=== PATIENT | male | born 1955 | race Caucasian/White ===

== ENCOUNTER 2017-05-28 09:00 | Inpatient (IN) | payer OTHER, MEDICAID ==
--- NOTE | 2017-05-28 09:44 | EDPHY ---
H & P Time Seen by Provider: 05/28/17 09:01 HPI/ROS: Chief complaint. Abdominal pain HPI. A 61-year-old male here by EMS with complaint of abdominal pain that started this morning. He complains of right upper quadrant abdominal pain beginning at 5:00 a.m.. He describes as a fullness and pressure with possible radiation to his back. It is worse with movement. He has been belching. Also seems to be worse with eating. Nausea without vomiting. History of cirrhosis and this is similar to that. He has known gallstones. No chest discomfort or shortness of breath. No fever. ROS Constitutional. no fever/chills, no weakness Eyes. no problems with vision ENT. no sore throat, no nasal drainage Cardiovascular. no chest pain Respiratory. no shortness of breath, no cough Abdominal. Right upper quadrant abdominal pain with nausea . no problems urinating MS. no calf pain/swelling, no neck/back pain, no joint pain Skin. no rash Lymph. no swollen glands Neuro. no headache, no dizziness, no difficulty walking or with speech Past Medical/Surgical History: Hypothyroid, obesity, portal hypertension atrial fibrillation Social History: Single, nonsmoker, no alcohol Smoking Status: Former smoker Physical Exam: General Appearance: Alert well-developed male mild distress. Vital signs are stable Eyes: Pupils equal and round no pallor or injection. ENT, Mouth: Mucous membranes are moist. Respiratory: There are no retractions, lungs are clear to auscultation. Cardiovascular: Regular rate and rhythm. Gastrointestinal: Right upper quadrant tenderness. No masses. Morbidly obese Neurological: Awake and alert, sensory and motor exams grossly normal. Skin: Warm and dry, no rashes. Musculoskeletal: Neck is supple nontender. Extremities symmetrical, full range of motion. Psychiatric: Patient is oriented X 3, there is no agitation. Constitutional: Initial Vital Signs Temperature (C) 36.7 C 05/28/17 09:02 Heart Rate 60 05/28/17 09:02 Respiratory Rate 16 05/28/17 09:02 Blood Pressure 134/64 H 05/28/17 09:02 O2 Sat (%) 90 L 05/28/17 09:02 O2 Delivery Mode Room Air Allergies/Adverse Reactions: strawberry Allergy (Verified 05/28/17 09:11) Medical Decision Making - Diagnostics Imaging Results: Imaging Impressions Abdomen Ultrasound 05/28/17 09:50 Impression: 1. Gallbladder sludge. 2. Limited exam. Liver, portal venous system, and biliary system are not optimally visualized. Findings discussed with Emergency Department physician, Bandar Zendejas on 2016 at 11:[address] 05/28/17 12:24 Impression: 1. Cholelithiasis with small gallstone seen near the neck of the gallbladder. Gallbladder is moderately distended suggesting it may be obstructive or gallbladder hydrops. Mild surrounding inflammatory change which could represent cholecystitis. 2. Cirrhotic liver with probable chronic portal vein thrombosis and recanalization with extensive varices of the spleen and left kidney suggesting a splenorenal shunt. 3. Nonspecific 3.5 cm hypodense lesion at the anterior dome of the liver. Recommend further evaluation with multiphase contrast evaluation. 4. Mild constipation. Limited evaluation for appendicitis as a normal appendix is not visualized. Minimal free fluid in the right lower quadrant could be secondary to an underlying cirrhosis. Mild diverticulosis without evidence for diverticulitis. 5. Other chronic findings as above. Results called and discussed with Bandar Zendejas on 05/28/2017, 1400 hours. Gallbladder ultrasound shows some sludge but no evidence of cholecystitis CT abdomen with IV contrast shows gallstones with small gallstone near the neck of the bladder. Gallbladder is moderately distended. The gallbladder appears to be mildly inflamed as well. Appendix not visualized Procedures: IV normal saline ED Course/Re-evaluation: Re-evaluation 12:15 p.m.--patient stable though continuing to complain of abdominal pain. CT is ordered Re-evaluation again at 2:15 p.m.. Patient continues to complain of right upper quadrant abdominal pain The consulted and discussed case with Dr. Millan, surgeon who sees the patient in the emergency department. He recommends admission to hospitalist. I have also consulted and discussed the case with Dr. Godwin, hospitalist, who agrees to the admission Differential Diagnosis: I have considered cholecystitis, common bile duct stone, cirrhosis, other causes of abdominal pain - Data Points Laboratory Results: Laboratory Results 05/28/17 09:01 05/28/17 09:01 05/28/17 05/28/17 05/28/17 09:01 09:01 09:01 WBC 7.71 10^3/uL 10^3/uL (3.80-9.50) RBC 4.23 10^6/uL L 10^6/uL (4.40-6.38) Hgb 13.9 g/dL g/dL (13.7-17.5) Hct 39.6 % L % (40.0-51.0) MCV 93.6 fL fL (81.5-99.8) MCH 32.9 pg pg (27.9-34.1) MCHC 35.1 g/dL g/dL (32.4-36.7) RDW 15.4 % H % (11.5-15.2) Plt Count 119 10^3/uL L 10^3/uL (150-400) MPV 10.4 fL fL (8.7-11.7) Neut % (Auto) 71.4 % % (39.3-74.2) Lymph % (Auto) 18.8 % % (15.0-45.0) [place] % (Auto) 8.0 % % (4.5-13.0) Eos % (Auto) 1.0 % % (0.6-7.6) Baso % (Auto) 0.5 % % (0.3-1.7) Nucleat RBC Rel Count 0.0 % % (0.0-0.2) Absolute Neuts (auto) 5.50 10^3/uL 10^3/uL (1.70-6.50) Absolute Lymphs (auto) 1.45 10^3/uL 10^3/uL (1.00-3.00) Absolute Monos (auto) 0.62 10^3/uL 10^3/uL (0.30-0.80) Absolute Eos (auto) 0.08 10^3/uL 10^3/uL (0.03-0.40) Absolute Basos (auto) 0.04 10^3/uL 10^3/uL (0.02-0.10) Absolute Nucleated RBC 0.00 10^3/uL 10^3/uL (0-0.01) Immature Gran % 0.3 % % (0.0-1.1) Immature Gran # 0.02 10^3/uL 10^3/uL (0.00-0.10) PT Pending INR Pending Sodium 134 mEq/L mEq/L (134-144) Potassium 3.9 mEq/L mEq/L (3.5-5.2) Chloride 102 mEq/L mEq/L (97-110) Carbon Dioxide 26 mEq/l mEq/l (22-31) Anion Gap 6 mEq/L L mEq/L (8-16) BUN 22 mg/dL mg/dL (7-23) Creatinine 0.6 mg/dL L mg/dL (0.7-1.3) Estimated GFR > 60 Glucose 105 mg/dL H mg/dL (70-100) Calcium 8.5 mg/dL mg/dL (8.5-10.4) Total Bilirubin 2.7 mg/dL H mg/dL (0.1-1.4) Conjugated Bilirubin 1.0 mg/dL H mg/dL (0.0-0.5) Unconjugated Bilirubin 1.7 mg/dL H mg/dL (0.0-1.1) AST 51 IU/L IU/L (17-59) ALT 38 IU/L IU/L (21-72) Alkaline Phosphatase 88 IU/L IU/L (38-126) Total Protein 5.9 g/dL L g/dL (6.3-8.2) Albumin 2.3 g/dL L g/dL (3.5-5.0) Lipase 76 IU/L IU/L (23-300) Medications Given: Discontinued Medications Fentanyl (Sublimaze) 100 mcg IVP EDNOW ONE Stop: 05/28/17 10:48 Last Admin: 05/28/17 10:49 Dose: 100 mcg Sodium Chloride (Ns) 1,000 mls @ 0 mls/hr IV EDNOW ONE; Wide Open PRN Reason: Protocol Stop: 05/28/17 09:51 Last Admin: 05/28/17 09:57 Dose: 1,000 mls Ondansetron HCl (Zofran) 4 mg IVP EDNOW ONE Stop: 05/28/17 09:51 Last Admin: 05/28/17 09:57 Dose: 4 mg Departure - Departure Disposition: [facility] Acute Clinical Impression: Abdominal pain Qualifiers: Abdominal location: right upper quadrant Qualified Code(s): R10.11 - Right upper quadrant pain Condition: Fair Referrals: Patient,NotPresent [Unknown] - As per Instructions
[2017-05-28] MEDS ORDERED: NS 1,000 ML IV ONE (09:50)
[2017-05-28] MEDS ORDERED: ONDANSETRON 4 MG/2 ML VIAL IVP ONE (09:50)
[2017-05-28 09:56] LABS: % IMMATURE GRANULYOCYTES 0.3 % (0.0-1.1); ABSOLUTE IMMATURE GRANULOCYTES 0.02 10^3/uL (0.00-0.10); ADD DIFF? NO; ADD MORPH? NO; ADD SCAN? NO; ATYPICAL LYMPHOCYTE FLAG 10 (0-99); FRAGMENT RBC FLAG 0 (0-99); HEMATOCRIT 39.6 % (40.0-51.0); HEMOGLOBIN 13.9 g/dL (13.7-17.5); LEFT SHIFT FLG 0 (0-99); LIPEMIA HEMOLYSIS FLAG 90 (0-99); MEAN CELL HEMOGLOBIN 32.9 pg (27.9-34.1); MEAN CELL HEMOGLOBIN CONCENTR. 35.1 g/dL (32.4-36.7); MEAN CELL VOLUME 93.6 fL (81.5-99.8); MEAN PLATELET VOLUME 10.4 fL (8.7-11.7); PLATELET CLUMPS FLAG 10 (0-99); PLATELET COUNT 119 10^3/uL (150-400); RED BLOOD CELL COUNT 4.23 10^6/uL (4.40-6.38); RED CELL DISTRIBUTION WIDTH 15.4 % (11.5-15.2)
[2017-05-28 10:15] LABS: ALANINE AMINOTRANSFERASE 38 IU/L (21-72); ALBUMIN 2.3 g/dL (3.5-5.0); ALKALINE PHOSPHATASE 88 IU/L (38-126); ANION GAP 6 mEq/L (8-16); ASPARTATE AMINOTRANSFERASE 51 IU/L (17-59); BILIRUBIN,TOTAL 2.7 mg/dL (0.1-1.4); BILIRUBIN-UNCONJUGATED 1.7 mg/dL (0.0-1.1); CALCIUM 8.5 mg/dL (8.5-10.4); CARBON DIOXIDE 26 mEq/l (22-31); CHLORIDE 102 mEq/L (97-110); CREATININE 0.6 mg/dL (0.7-1.3); GLOMERULAR FILTRATION RATE > 60; GLUCOSE 105 mg/dL (70-100); POTASSIUM 3.9 mEq/L (3.5-5.2); SODIUM 134 mEq/L (134-144); TOTAL PROTEIN 5.9 g/dL (6.3-8.2)
[2017-05-28] MEDS ORDERED: fentaNYL 100 MCG/2 ML INJ IVP ONE (10:47)
[2017-05-28] MEDS ORDERED: fentaNYL 100 MCG/2 ML INJ ONE (10:47)
--- NOTE | 2017-05-28 11:12 | CPEKG ---
Heart Rate: 53 RR Interval: 1132 P-R Interval: 204 QRSD Interval: 116 QT Interval: 464 QTC Interval: 436 P Jackson: -2 QRS Jackson: -30 T Wave Jackson: 29 EKG Severity - ABNORMAL ECG - EKG Impression: SINUS RHYTHM EKG Impression: NONSPECIFIC INTRAVENTRICULAR CONDUCTION DELAY Electronically Signed By: Bandar Zendejas 28-May-2017 16:10:46
[2017-05-28] MEDS ORDERED: IOPAMIDOL (ISOVUE-300) 100 ML BTL ONE (12:47)
[2017-05-28 15:32] LABS: INR 1.32 (0.83-1.16); PROTIME(PATIENT) 16.4 SEC (12.0-15.0)
[2017-05-28] MEDS ORDERED: oxyCODONE IR 5 MG TAB PO PRN (15:33)
[2017-05-28] MEDS ORDERED: METOCLOPRAMIDE 10 MG TAB PO PRN (15:33)
[2017-05-28] MEDS ORDERED: METOCLOPRAMIDE 10 MG/2 ML VIAL IVP PRN (15:33)
[2017-05-28] MEDS ORDERED: BISACODYL 10 MG SUPP PR PRN (15:55)
[2017-05-28] MEDS ORDERED: POLYETHYLENE GLYCOL 3350 17 GM PKT PO PRN (15:55)
[2017-05-28] MEDS ORDERED: MAGNESIUM HYDROXIDE 30 ML UDCUP PO PRN (15:55)
--- NOTE | 2017-05-28 15:59 | PDGENHP ---
History and Physical - Chief Complaint Acute abdominal pain - History of Present Illness primary care provider: Dr. Dunn HPI: 61-year-old male presenting with acute abdominal pain located in the right upper quadrant, characterized as fullness and pressure, with onset of symptoms at 5:00 a.m. this morning, duration persistent thereafter. Patient reports that the abdominal symptoms were exacerbated with oral intake of water and were associated with some belching and nausea. Reports that his last bowel movement was on the evening prior to this presentation, and the bowel movement did seem to alleviate sensation of abdominal fullness he experienced after eating dinner. he reports that he began experiencing some pain located in his lower back at that time. He reports that he does intermittently feel symptoms of abdominal discomfort after meals, but he has mostly characterizes this as early satiety and a bloating sensation. He has otherwise not had any fevers or chills. He does endorse oliguria on the day of presentation. History Information - Allergies/Home Medication List Allergies/Adverse Reactions: strawberry Allergy (Verified 05/28/17 09:11) Home Medications: Gabapentin [Neurontin 400 MG (*)] 400 mg PO BID 05/28/17 [Last Taken Unknown] Hydrochlorothiazide [HCTZ (*)] 12.5 mg PO DAILY 05/28/17 [Last Taken 05/28/17] Lactulose 30 gm PO BID 05/28/17 [Last Taken 05/27/17] Levothyroxine [Synthroid 75 mcg (*)] 75 mcg PO HS 05/28/17 [Last Taken 05/27/17] Nadolol [Nadolol 20 mg (*)] 20 mg PO DAILY 05/28/17 [Last Taken Unknown] Omeprazole 40 mg PO DAILY 05/28/17 [Last Taken 6 Weeks Ago] Rifaximin [Xifaxan] 550 mg PO BID 05/28/17 [Last Taken Unknown] oxyCODONE IR [Oxycodone Ir (*)] 10 mg PO BID 05/28/17 [Last Taken 05/27/17] I have personally reviewed and updated: family history, medical history, social history, surgical history - Past Medical History Additional medical history: Cirrhosis with portal hypertension. Lymphedema with venous stasis dermatitis. Hypertension. GERD. Neuropathy. Cholelithiasis. Hypothyroidism - Surgical History Additional surgical history: cataract surgery - Family History Additional family history: no family history of liver disease or venous thromboembolism, his father was an alcoholic - Social History Smoking Status: Former smoker Alcohol Use: Rarely Drug Use: Other ( patient use to use dietary amphetamines to lose weight, last used in the early 1980s) Additional social history: patient has a private residence in [place], he is currently at [facility] for treatment of his lymphedema Review of Systems ROS: 10pt was reviewed & negative except for what was stated in HPI & below Constitutional: Reports: other ( morbid obesity) Cardiac: Reports: edema Gastrointestinal: Reports: abdominal pain, nausea Physical Exam Temp Pulse Resp BP Pulse Ox 36.6 C 57 L 16 146/62 H 95 05/28/17 15:07 05/28/17 15:07 05/28/17 15:07 05/28/17 15:07 05/28/17 15:07 Constitutional: no apparent distress, not in pain, chronically ill appearing, obese, No uncomfortable Eyes: PERRL, anicteric sclera, EOMI Ears, Nose, Mouth, Throat: hearing normal, dry mucous membranes Cardiovascular: bradycardia, edema ( 1+ bilateral lower extremities), No systolic murmur, No irregularly irregular Respiratory: no respiratory distress, no rales or rhonchi, clear to auscultation Gastrointestinal: tenderness ( moderate tenderness to mild palpation in the right hemidiaphragm, worse right upper quadrant), rebound, other ( hypoactive bowel sounds), No guarding, No distension Skin: other ( stasis dermatitis bilateral lower extremities, some mild excoriations in the right medial lower extremity without any surrounding erythema) Neurologic: AAOx3, No sensation intact bilaterally ( absent sensation in the bilateral toes, present sensation in the bilateral mid lower extremities), No weakness ( motor strength 5/5 bilateral lower extremities), No asterixes Psychiatric: not anxious, not encephalopathic, flat affect, No agitated Lab Data & Imaging Review 05/28/17 09:01 05/28/17 09:01 WBC 7.71 10^3/uL (3.80-9.50) 05/28/17 09:01 RBC 4.23 10^6/uL (4.40-6.38) L 05/28/17 09:01 Hgb 13.9 g/dL (13.7-17.5) 05/28/17 09:01 Hct 39.6 % (40.0-51.0) L 05/28/17 09:01 MCV 93.6 fL (81.5-99.8) 05/28/17 09:01 MCH 32.9 pg (27.9-34.1) 05/28/17 09:01 MCHC 35.1 g/dL (32.4-36.7) 05/28/17 09:01 RDW 15.4 % (11.5-15.2) H 05/28/17 09:01 Plt Count 119 10^3/uL (150-400) L 05/28/17 09:01 MPV 10.4 fL (8.7-11.7) 05/28/17 09:01 Neut % (Auto) 71.4 % (39.3-74.2) 05/28/17 09:01 Lymph % (Auto) 18.8 % (15.0-45.0) 05/28/17 09:01 [place] % (Auto) 8.0 % (4.5-13.0) 05/28/17 09:01 Eos % (Auto) 1.0 % (0.6-7.6) 05/28/17 09:01 Baso % (Auto) 0.5 % (0.3-1.7) 05/28/17 09:01 Nucleat RBC Rel Count 0.0 % (0.0-0.2) 05/28/17 09:01 Absolute Neuts (auto) 5.50 10^3/uL (1.70-6.50) 05/28/17 09:01 Absolute Lymphs (auto) 1.45 10^3/uL (1.00-3.00) 05/28/17 09:01 Absolute Monos (auto) 0.62 10^3/uL (0.30-0.80) 05/28/17 09:01 Absolute Eos (auto) 0.08 10^3/uL (0.03-0.40) 05/28/17 09:01 Absolute Basos (auto) 0.04 10^3/uL (0.02-0.10) 05/28/17 09:01 Absolute Nucleated RBC 0.00 10^3/uL (0-0.01) 05/28/17 09:01 Immature Gran % 0.3 % (0.0-1.1) 05/28/17 09:01 Immature Gran # 0.02 10^3/uL (0.00-0.10) 05/28/17 09:01 PT 16.4 SEC (12.0-15.0) H 05/28/17 09:01 INR 1.32 (0.83-1.16) H 05/28/17 09:01 Sodium 134 mEq/L (134-144) 05/28/17 09:01 Potassium 3.9 mEq/L (3.5-5.2) 05/28/17 09:01 Chloride 102 mEq/L (97-110) 05/28/17 09:01 Carbon Dioxide 26 mEq/l (22-31) 05/28/17 09:01 Anion Gap 6 mEq/L (8-16) L 05/28/17 09:01 BUN 22 mg/dL (7-23) 05/28/17 09:01 Creatinine 0.6 mg/dL (0.7-1.3) L 05/28/17 09:01 Estimated GFR > 60 05/28/17 09:01 Glucose 105 mg/dL (70-100) H 05/28/17 09:01 Calcium 8.5 mg/dL (8.5-10.4) 05/28/17 09:01 Total Bilirubin 2.7 mg/dL (0.1-1.4) H 05/28/17 09:01 Conjugated Bilirubin 1.0 mg/dL (0.0-0.5) H 05/28/17 09:01 Unconjugated Bilirubin 1.7 mg/dL (0.0-1.1) H 05/28/17 09:01 AST 51 IU/L (17-59) 05/28/17 09:01 ALT 38 IU/L (21-72) 05/28/17 09:01 Alkaline Phosphatase 88 IU/L (38-126) 05/28/17 09:01 Total Protein 5.9 g/dL (6.3-8.2) L 05/28/17 09:01 Albumin 2.3 g/dL (3.5-5.0) L 05/28/17 09:01 Lipase 76 IU/L (23-300) 05/28/17 09:01 Visualized and Interpreted EKG results: Yes EKG Interpretation: Positive for: other ( normal sinus mechanism with intraventricular conduction delay, Q-wave in lead 3, T-wave inversion in lead V2 ) Assessment & Plan Assessment: 61-year-old male presents with acute abdominal pain and suspected acute cholecystitis Plan: 1. Suspected acute cholecystitis. New problem this provider, further workup indicated. Evidenced by right upper quadrant pain and tenderness, with mixed hyperbilirubinemia, postprandial symptoms. He has radiographic evidence of stones near the gallbladder neck with pericholecystic inflammation and gallbladder distention - discussed with Dr. Bandar Zendejas, he reports to me that he has consulted with Dr. Millan, he has recommended initial conservative management and further workup given patient's high surgical risk - get HIDA scan - treat supportively with IV and oral pain medications, IV fluids, bowel rest - I suspect the patient will require gallbladder surgery, and his current RCRI score is 0, conferring 0.5% perioperative cardiovascular risk of morbidity and/ or mortality, resulting in low cardiovascular risk for high risk surgery, given patient's underlying comorbid condition of cirrhosis with portal hypertension and morbid obesity 2. Constipation. Present on CT scan, continue home dosage of lactulose, continue bowel regiment 3. Cirrhosis. Chronic, include portal hypertension, he is currently on beta- artem and scheduled xifaxan/lactulose, continue - no evidence of hepatic encephalopathy - order outside records from primary care provider office, attempt to define the exact etiology of his cirrhosis 4. Morbid obesity. Chronic, BMI 55, significantly increase patient's risk of worsening morbidity and/or mortality 5. Chronic pain with continuous opiate dependency. Most likely secondary to obesity and immobility, adjusted to p.r.n. oxycodone with bowel regimen 6. Hypertension. Hold diuretic given poor oral intake, continue monitor 7. Peripheral neuropathy. Continue gabapentin 8. Lymphedema. Chronic, patient's legs are currently wrapped, he does have some small areas of excoriations on his medial left thigh, wound care consult appreciated Diet. NPO with IV fluids Prophylaxis. Moderate risk patient, pharm held given possible surgery, SCDs to be placed Code. Do not resuscitate per patient, his sister is MDPOA Disposition. Anticipated discharge is 05/29/2017, pending further workup as outlined above. If patient requires surgery for acute cholecystitis, should be upgraded to inpatient admission status given his long list of high risk comorbid conditions outlined above.
[2017-05-28] MEDS: NS W/ 20 KCl/L 1,000 ML IV SCH (18:19)
--- NOTE | 2017-05-28 18:19 | WOCRNPDOC ---
WOCRN Advanced Assessment Note - Skin Integrity Problem, Advanced Assess Left Heel Dressing Type: Hydrofera Blue, Non-Bordered Foam Dressing Description: Clean/Dry, Intact Exudate Amount: None Integumentary Issue Intervention: Dressing Removed Danika Wound Tissue: Calloused Danika Wound Swelling: None Wound Bed Color: Red Wound Bed Constitution: Granulation Tissue Wound Edges: Attached Site Measurement - Head-to-Toe Length X Width X Depth (cm): 4x3.2x0.3 Skin Integrity Problem Comment: Dressing was adhered to patient's wound and needed to be soaked before removal. Wound presents as a neuropathic ulcer. Will plan to place collagen and hydrofera blue ready. Patient OK to shower with dressings off all wounds except this one. Cover this wound with tegaderm for the shower and then change the dressing after the shower and reapply compression /BRISSA wraps. Right Posterior Lower Leg Dressing Type: Hydrofera Blue Dressing Description: Clean/Dry, Intact Exudate Amount: Scant Exudate Characteristic(s): Serosanguinous Integumentary Issue Intervention: Dressing Removed Danika Wound Tissue: Xerotic, Hypertrophic, Lichenification Wound Bed Constitution: Granulation Tissue Wound Edges: Epithelizing Site Measurement - Head-to-Toe Length X Width X Depth (cm): 2.9x1.7x0.2 Skin Integrity Problem Comment: There is a partial thickness ulcer present that was previously much larger, as evidenced by scar tissue and pigment changes. Bilateral lower legs are extensively hypertrophic and lichenified. This can be addressed with urea cream while the patient is inpatient. The wound will be treated with silvasorb and Alleyvn life. Will continue wrapping leg for compression. Wound care will round again on or near 06/03. Coccyx Dressing Type: Open to Air Integumentary Issue Intervention: Barrier Cream Applied Site Measurement - Head-to-Toe Length X Width X Depth (cm): 0.5x0.4x0.1 Skin Integrity Problem Comment: Small, linear, partial thickness opening on coccyx. This is likely intertrigenous dermatitis/friction injury along gluteal cleft. There are also mixed with areas of xerotic and hypertrophic skin. Manage with dimethicone cream. Multiple RN's and photographic plate maker were in room for care as patient requires 4-5 people to turn him. Bariatric bed has been ordered by . If patient stays for more than a day or two staff may benefit from a bariatric TAPS system available in the wound cart.
[2017-05-28] MEDS: oxyCODONE IR 5 MG TAB PO PRN ×2 (18:20→22:41)
[2017-05-28] MEDS: RIFAXIMIN 550 MG TAB PO SCH (20:52)
[2017-05-28] MEDS: GABAPENTIN 400 MG CAP PO SCH (20:52)
[2017-05-28] MEDS: LEVOTHYROXINE 75 MCG TAB PO SCH (20:52)
[2017-05-28] MEDS: LACTULOSE 20 GM/30 ML UDCUP PO SCH (20:53)
[2017-05-28] MEDS ORDERED: LACTULOSE 30 GM PO SCH (21:00)
[2017-05-28] MEDS: SENNOSIDES/DOCUSATE SODIUM TAB PO SCH (22:22)
[2017-05-29] MEDS ORDERED: PHYTONADIONE 2.5 MG/2.5 ML ORAL UDL PO ONE (00:39)
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
[2017-05-29 04:46] LABS: % IMMATURE GRANULYOCYTES 0.6 % (0.0-1.1); ABSOLUTE IMMATURE GRANULOCYTES 0.09 10^3/uL (0.00-0.10); ADD DIFF? NO; ADD MORPH? NO; ADD SCAN? NO; ATYPICAL LYMPHOCYTE FLAG 10 (0-99); FRAGMENT RBC FLAG 0 (0-99); HEMATOCRIT 44.4 % (40.0-51.0); HEMOGLOBIN 15.1 g/dL (13.7-17.5); LEFT SHIFT FLG 0 (0-99); LIPEMIA HEMOLYSIS FLAG 90 (0-99); MEAN CELL HEMOGLOBIN 32.9 pg (27.9-34.1); MEAN CELL VOLUME 96.7 fL (81.5-99.8); PLATELET CLUMPS FLAG 10 (0-99); PLATELET COUNT 109 10^3/uL (150-400); RED BLOOD CELL COUNT 4.59 10^6/uL (4.40-6.38); RED CELL DISTRIBUTION WIDTH 15.9 % (11.5-15.2)
[2017-05-29 05:04] LABS: ALANINE AMINOTRANSFERASE 52 IU/L (21-72); ALBUMIN 2.4 g/dL (3.5-5.0); ALKALINE PHOSPHATASE 111 IU/L (38-126); ANION GAP 7 mEq/L (8-16); ASPARTATE AMINOTRANSFERASE 75 IU/L (17-59); BILIRUBIN,TOTAL 3.8 mg/dL (0.1-1.4); CALCIUM 8.6 mg/dL (8.5-10.4); CARBON DIOXIDE 27 mEq/l (22-31); CHLORIDE 102 mEq/L (97-110); CREATININE 0.8 mg/dL (0.7-1.3); GLOMERULAR FILTRATION RATE > 60; GLUCOSE 107 mg/dL (70-100); POTASSIUM 4.3 mEq/L (3.5-5.2); SODIUM 136 mEq/L (134-144); TOTAL PROTEIN 6.1 g/dL (6.3-8.2)
[2017-05-29 05:10] LABS: BILIRUBIN-CONJUGATED 1.6 mg/dL (0.0-0.5); BILIRUBIN-UNCONJUGATED 2.2 mg/dL (0.0-1.1)
[2017-05-29] MEDS: GABAPENTIN 400 MG CAP PO SCH ×2 (07:50→21:25)
[2017-05-29] MEDS: RIFAXIMIN 550 MG TAB PO SCH ×2 (07:50→21:25)
[2017-05-29] MEDS: SENNOSIDES/DOCUSATE SODIUM TAB PO SCH ×2 (07:50→21:25)
[2017-05-29] MEDS: NADOLOL 20 MG TAB PO SCH (07:50)
[2017-05-29] MEDS: PANTOPRAZOLE SODIUM 40 MG TAB PO SCH (07:50)
[2017-05-29] MEDS: LACTULOSE 20 GM/30 ML UDCUP PO SCH ×2 (07:51→21:23)
--- NOTE | 2017-05-29 08:04 | SOAPPROG ---
GISSELL Progress Note Assessment/Plan: Assessment: 1.cholelithiasis/cholecystitis, cannot exclude choledocholithiasis 2. cirrhosis unclear etiology 3. portal vein thrombosis/secondary varices 4. morbid obesity 5. A-fib hx 6. NO COR status confirmed Plan: HIDA scan to exclude CBD obstruction IV Abx cholecystectomy tomorrow if not improved 05/29/17 08:01 Subjective: persistant RUQ pain Objective: Vital Signs Temp Pulse Resp BP Pulse Ox 36.6 C 70 20 149/85 H 90 L 05/29/17 07:56 05/29/17 07:56 05/29/17 07:56 05/29/17 07:56 05/29/17 07:56 Laboratory Results 05/29/17 04:30 05/29/17 04:30 05/28/17 05/29/17 05/30/17 05:59 05:59 05:59 Intake Total 0 Output Total 375 275 Balance -375 -275 PT 16.4 SEC (12.0-15.0) H 05/28/17 09:01 INR 1.32 (0.83-1.16) H 05/28/17 09:01 - Time Spent With Patient Time Spent With Patient: 20 min - Pending Discharge Pending Discharge Within 24 Hours: No Pending Discharge Within 48 Hours: No Physical Exam - Physical Exam General Appearance: mild distress Abdomen: soft, McBurney's point tender, other (tender RUQ) Extremities: other (severe lymphedema) Neuro/Psych: normal mood/affect, oriented x 3 ICD10 Worksheet Patient Problems: Problems Problem Status Onset Abdominal pain Acute Atrial fibrillation Acute Cholecystitis, acute with cholelithiasis Acute Chronic pain due to trauma Acute Cirrhosis Acute Morbid obesity Acute Portal vein thrombosis Acute - ICD10 Problem Qualifiers (1) Cirrhosis Qualifiers: Hepatic cirrhosis type: unspecified hepatic cirrhosis Ascites presence: A (2) Portal vein thrombosis (3) Cholecystitis, acute with cholelithiasis Qualifiers: Cholelithiasis location: gallbladder Biliary obstruction: with biliary obstruction Qualified Code(s): K80.01 - Calculus of gallbladder with acute cholecystitis with obstruction (4) Morbid obesity (5) Atrial fibrillation Qualifiers: Atrial fibrillation type: paroxysmal Qualified Code(s): I48.0 - Paroxysmal atrial fibrillation (6) Chronic pain due to trauma
[2017-05-29] MEDS ORDERED: NON-FORMULARY NEW DRUG (Omeprazole [Omeprazole] 40 MG) PO SCH (09:00)
--- NOTE | 2017-05-29 09:26 | HOSPPROG ---
Hospitalist Progress Note Assessment/Plan: # acute cholecystitis, mild LFT elevation (may be chronic but no old labs here) - start levaquin/flagyl - HIDA today to r/o CBD stone - likely cholecystectomy tomorrow; high risk given cirrhosis and obesity # leukocytosis d/t acute cholecystitis # morbid obesity # cirrhosis - unclear etiology; suspect etOH + GARCIA - rifaximin, nadolol, lactulose - mild thrombocytopenia, coagulopathy (got vit k) - chronic portal vein thrombosis # htn - hold hctz # peripheral neuropathy - gabapentin # liver lesion - bx during surgery if possible, or outpatient f/u - needs screening for HCC Subjective: ongoing RUQ pain, severe Objective: Vital Signs Temp Pulse Resp BP Pulse Ox 36.6 C 70 20 149/85 H 90 L 05/29/17 07:56 05/29/17 07:56 05/29/17 07:56 05/29/17 07:56 05/29/17 07:56 Laboratory Results 05/29/17 04:30 05/29/17 04:30 05/28/17 05/29/17 05/30/17 05:59 05:59 05:59 Intake Total 0 Output Total 375 275 Balance -375 -275 PT 16.4 SEC (12.0-15.0) H 05/28/17 09:01 INR 1.32 (0.83-1.16) H 05/28/17 09:01 - Physical Exam Constitutional: obese Cardiovascular: regular rate and rhythym, no murmur, rub, or gallop Respiratory: no respiratory distress, no rales or rhonchi, clear to auscultation Gastrointestinal: normoactive bowel sounds, other (soft; RUQ pain, +Suarez's sign) ICD10 Worksheet Patient Problems: Problems Problem Status Onset Abdominal pain Acute Cirrhosis Acute Portal vein thrombosis Acute Cholecystitis, acute with cholelithiasis Acute Morbid obesity Acute Atrial fibrillation Acute Chronic pain due to trauma Acute
[2017-05-29] MEDS: oxyCODONE IR 5 MG TAB PO PRN ×3 (11:47→19:30)
[2017-05-29] MEDS: NS W/ 20 KCl/L 1,000 ML IV SCH (13:30)
--- NOTE | 2017-05-29 17:47 | SOAPPROG ---
Downtime Inpatient MD Late Entry SOAP Note: HIDA shows no CBD obstruction/GB was non-vis I plan on proceeding with lap vs. open jean carlos tomorrow afternoon 05/30.
[2017-05-29] MEDS: LEVOTHYROXINE 75 MCG TAB PO SCH (21:25)
[2017-05-30] MEDS: NS W/ 20 KCl/L 1,000 ML IV SCH (01:53)
[2017-05-30] MEDS: oxyCODONE IR 5 MG TAB PO PRN (01:53)
[2017-05-30 05:05] LABS: % IMMATURE GRANULYOCYTES 0.9 % (0.0-1.1); ABSOLUTE IMMATURE GRANULOCYTES 0.12 10^3/uL (0.00-0.10); ADD DIFF? NO; ADD MORPH? NO; ADD SCAN? NO; ATYPICAL LYMPHOCYTE FLAG 0 (0-99); FRAGMENT RBC FLAG 0 (0-99); HEMATOCRIT 38.1 % (40.0-51.0); LEFT SHIFT FLG 0 (0-99); LIPEMIA HEMOLYSIS FLAG 90 (0-99); MEAN CELL HEMOGLOBIN 33.1 pg (27.9-34.1); MEAN CELL HEMOGLOBIN CONCENTR. 34.1 g/dL (32.4-36.7); MEAN CELL VOLUME 96.9 fL (81.5-99.8); MEAN PLATELET VOLUME 10.3 fL (8.7-11.7); PLATELET CLUMPS FLAG 0 (0-99); PLATELET COUNT 95 10^3/uL (150-400); RED BLOOD CELL COUNT 3.93 10^6/uL (4.40-6.38); RED CELL DISTRIBUTION WIDTH 16.1 % (11.5-15.2)
[2017-05-30 05:18] LABS: ALANINE AMINOTRANSFERASE 46 IU/L (21-72); ALBUMIN 1.9 g/dL (3.5-5.0); ALKALINE PHOSPHATASE 109 IU/L (38-126); ANION GAP 5 mEq/L (8-16); ASPARTATE AMINOTRANSFERASE 65 IU/L (17-59); BILIRUBIN,TOTAL 3.6 mg/dL (0.1-1.4); CALCIUM 8.2 mg/dL (8.5-10.4); CARBON DIOXIDE 27 mEq/l (22-31); CHLORIDE 104 mEq/L (97-110); CREATININE 0.8 mg/dL (0.7-1.3); GLOMERULAR FILTRATION RATE > 60; GLUCOSE 94 mg/dL (70-100); POTASSIUM 4.4 mEq/L (3.5-5.2); SODIUM 136 mEq/L (134-144); TOTAL PROTEIN 5.4 g/dL (6.3-8.2)
[2017-05-30 05:24] LABS: BILIRUBIN-CONJUGATED 1.8 mg/dL (0.0-0.5); BILIRUBIN-UNCONJUGATED 1.8 mg/dL (0.0-1.1)
[2017-05-30] MEDS: SENNOSIDES/DOCUSATE SODIUM TAB PO SCH ×2 (09:20→20:50)
[2017-05-30] MEDS: RIFAXIMIN 550 MG TAB PO SCH ×2 (09:20→20:48)
[2017-05-30] MEDS: LACTULOSE 20 GM/30 ML UDCUP PO SCH ×2 (09:21→20:51)
[2017-05-30] MEDS: NADOLOL 20 MG TAB PO SCH (09:21)
[2017-05-30] MEDS: PANTOPRAZOLE SODIUM 40 MG TAB PO SCH (09:21)
[2017-05-30] MEDS: GABAPENTIN 400 MG CAP PO SCH ×2 (09:21→20:48)
--- NOTE | 2017-05-30 10:32 | HOSPPROG ---
Hospitalist Progress Note Assessment/Plan: # acute cholecystitis, mild LFT elevation (may be chronic but no old labs here) - imaging shows possible obstructive gall stone - to OR today for open jean carlos - cont levaquin/flagyl - high risk given cirrhosis and obesity # leukocytosis d/t acute cholecystitis # morbid obesity # lymphedema with lichenification of LE's and chronic venous stasis ulcers - LE' s dressed, reviewed wound care notes - cont wound care # sacral pressure injury - wound care following # cirrhosis - ETOH hx + GARCIA - rifaximin, nadolol, lactulose - mild thrombocytopenia - chronic portal vein thrombosis # coagulopathy - due to above, s/p Vit K # liver lesion 3.5 cm - biopsy during surgery if possible vs outpt multiphase contrast CT for further evaluation - outpt HCC screening # htn - BP stable this am, holding hctz # peripheral neuropathy - gabapentin # DVT PPLX - SCD's. Lovenox deferred today as going to OR. # DNR # Dispo - cont inpt Subjective: Pt c/o RUQ pain, worse with coughing. Followed by GI in [place] for cirrhosis, but lives at [facility]. No fevers/chills. No N/V. Thirsty , wants water. Objective: Vital Signs Temp Pulse Resp BP Pulse Ox 36.8 C 75 16 125/53 H 90 L 05/30/17 08:55 05/30/17 08:55 05/30/17 08:55 05/30/17 08:55 05/30/17 08:55 Laboratory Results 05/30/17 04:44 05/30/17 04:44 05/29/17 05/30/17 05/31/17 05:59 05:59 05:59 Intake Total 1058 Output Total 675 145 Balance 383 -145 PT 16.4 SEC (12.0-15.0) H 05/28/17 09:01 INR 1.32 (0.83-1.16) H 05/28/17 09:01 - Physical Exam Constitutional: chronically ill appearing, obese, unkempt Eyes: PERRL Ears, Nose, Mouth, Throat: moist mucous membranes Cardiovascular: regular rate and rhythym Respiratory: no respiratory distress, clear to auscultation Gastrointestinal: normoactive bowel sounds, other (obese, soft, +RUQ TTP, no r/r /g) Skin: other (b/l LE edema with chronic lichenification of toes, extremities wrapped) Musculoskeletal: generalized weakness Neurologic: AAOx3 Psychiatric: interacting appropriately ICD10 Worksheet Patient Problems: Problems Problem Status Onset Abdominal pain Acute Atrial fibrillation Acute Cholecystitis, acute with cholelithiasis Acute Chronic pain due to trauma Acute Cirrhosis Acute Morbid obesity Acute Portal vein thrombosis Acute
[2017-05-30] MEDS ORDERED: LR 1,000 ML IV ONE (14:54)
--- NOTE | 2017-05-30 15:25 | PDANEPAE ---
ANE History of Present Illness acute cholecystitis ANE Past Medical History - Cardiovascular History Hx Hypertension: Yes - Pulmonary History Hx Oxygen in Use at Home: No Hx Sleep Apnea: Yes Sleep Apnea Screening Result - Last Documented: Positive - Endocrine History Hx Diabetes: No Hypothyroid: Yes Obesity: severe - Liver History Hx Hepatic Disorders: Yes - Neurological & Psychiatric Hx Hx Neurological and Psychiatric Disorders: Yes ANE Review of Systems - Exercise capacity METS (RN): 1 METS ANE Patient History - Allergies Allergies/Adverse Reactions: strawberry Allergy (Verified 05/28/17 09:11) - Home Medications Home Medications: Gabapentin [Neurontin 400 MG (*)] 400 mg PO BID 05/28/17 [Last Taken Unknown] Hydrochlorothiazide [HCTZ (*)] 12.5 mg PO DAILY 05/28/17 [Last Taken 05/28/17] Lactulose 30 gm PO BID 05/28/17 [Last Taken 05/27/17] Levothyroxine [Synthroid 75 mcg (*)] 75 mcg PO HS 05/28/17 [Last Taken 05/27/17] Nadolol [Nadolol 20 mg (*)] 20 mg PO DAILY 05/28/17 [Last Taken Unknown] Omeprazole 40 mg PO DAILY 05/28/17 [Last Taken 6 Weeks Ago] Rifaximin [Xifaxan] 550 mg PO BID 05/28/17 [Last Taken Unknown] oxyCODONE IR [Oxycodone Ir (*)] 10 mg PO BID 05/28/17 [Last Taken 05/27/17] - NPO status NPO Since - Liquids (Date): 05/29/17 NPO Since - Liquids (Time): 00:00 NPO Since - Solids (Date): 05/29/17 NPO Since - Solids (Time): 00:00 - Smoking Hx Smoking Status: Former smoker - Alcohol Use Alcohol Use: Rarely ANE Labs/Vital Signs - Labs Result Diagrams: 05/30/17 04:44 05/30/17 04:44 - Vital Signs Blood Pressure: 134/53 Heart Rate: 72 Respiratory Rate: 16 O2 Sat (%): 94 Height: 182.88 cm Weight: 197.313 kg ANE Physical Exam - Airway Neck exam: FROM Mallampati Score: Class 2 Mouth exam: normal dental/mouth exam - Pulmonary Pulmonary: no respiratory distress - Cardiovascular Cardiovascular: regular rate and rhythym - ASA Status ASA Status: IV ANE Anesthesia Plan Anesthesia Plan: general endotracheal anesthesia
[2017-05-30] MEDS ORDERED: BUPIVACAINE 0.5% 30 ML SDV ONE (15:33)
[2017-05-30] MEDS ORDERED: IOTHALAMATE MEG (CONRAY) 50 ML VIAL IV ONE (15:34)
[2017-05-30] MEDS ORDERED: SUCCINYLCHOLINE CHLORIDE*ANESTHESIA ONLY*200 MG/10 ML SYR IVP ONE (15:38)
[2017-05-30] MEDS ORDERED: ROCURONIUM 50 MG/5 ML VIAL ONE (15:38)
[2017-05-30] MEDS ORDERED: fentaNYL 100 MCG/2 ML INJ ONE ×4 (15:38→18:43)
[2017-05-30] MEDS ORDERED: HYDROmorphONE/DILAUDID 2 MG/ML INJ ONE (15:39)
[2017-05-30] MEDS ORDERED: PROPOFOL 200 MG/20 ML VIAL ONE ×2 (15:39→16:26)
[2017-05-30] MEDS ORDERED: PHM DO NOT USE-BUPIVACAINE 0.25% THORACOTOMY MISC SCH (16:30)
[2017-05-30] MEDS ORDERED: ALBUMIN 5% 250 ML BOTTLE IV ONE (16:39)
[2017-05-30] MEDS ORDERED: BUPIVACAINE 0.25% 270 ML in PUMP SET 1 EA NB ONE (16:45)
[2017-05-30] MEDS ORDERED: ONDANSETRON 4 MG/2 ML VIAL IVP PRN (18:08)
[2017-05-30] MEDS ORDERED: NALOXONE HCL 0.4 MG/ML INJ IVP PRN (18:08)
[2017-05-30] MEDS: fentaNYL 100 MCG/2 ML INJ IVP PRN ×2 (18:43→18:50)
--- NOTE | 2017-05-30 18:43 | POSTOPPROG ---
Post Op Note Date of Operation: 05/30/17 Surgeon: Noe Millan (, FACS) Net Developer: Hermann Burnett MD Anesthesiologist: Jeremy Sierra MD Anesthesia: GET(General Endotracheal) Pre-op Diagnosis: Cholecystitis Post-op Diagnosis: gangrenous cholecystitis Procedure: open cholecystectomy Findings: gangrenous gallbladder Inf/Abcess present in the surg proc area at time of surgery?: Yes Depth: Organ Space EBL: 100-500 (400ml?) Complications: none Drains: Pernell Orenlas Specimen(s): gallbladder/cultures
--- NOTE | 2017-05-30 18:52 | POSTANESTH ---
Post Anesthetic Evaluation Cardiovascular Status: Normal, Stable Respiratory Status: Normal, Stable Level of Consciousness/Mental Status: Can Participate in Eval Pain Control: Adequate, Prn Tx Ordered Nausea/Vomiting Control: Adequate, Prn Tx Ordered Complications Possibly Related to Anesthesia: None Noted
[2017-05-30] MEDS ORDERED: HYDROmorphONE/DILAUDID 1 MG/ML SYR ONE (18:53)
[2017-05-30] MEDS: HYDROmorphONE/DILAUDID 1 MG/ML SYR IVP PRN ×3 (18:55→19:15)
[2017-05-30] MEDS: LEVOTHYROXINE 75 MCG TAB PO SCH (20:48)
--- NOTE | 2017-05-30 22:07 | GOP ---
[f rep st] OPERATIVE REPORT DATE OF OPERATION: 05/29/2017 SURGEON: Noe Millan MD, FACS COMPUTER APPLICATIONS DEVELOPER: Hermann Burnett MD. ANESTHESIA: Pinky Sierra MD. PREOPERATIVE DIAGNOSIS: Acute cholecystitis. POSTOPERATIVE DIAGNOSIS: Acute gangrenous cholecystitis. PROCEDURE PERFORMED: Open cholecystectomy. FINDINGS: Morbid obesity, ascites, significant micronodular cirrhosis and grade 2 varices. Patient's gallbladder was gangrenous in appearance, contained multiple pigmented stones and was obstructed. Intraoperative cholangiogram was not performed as a preoperative HIDA scan showed no evidence of common bile duct obstruction. ESTIMATED BLOOD LOSS: 500 cc. DESCRIPTION OF PROCEDURE: After informed consent was obtained, the patient was brought to the operating room and placed under general anesthesia. As the patient weighed 440 pounds, it was necessary to use a special bariatric operating table with lateral extensions. The patient's pressure points were carefully padded. A Lang catheter was placed. The abdomen was prepped and draped in usual fashion. The patient had been receiving Levaquin and Flagyl, and no additional antibiotics were administered perioperatively. Before proceeding, a time-out and identification of the patient was performed. 0.25% Marcaine was used to infiltrate the abdominal wall lateral to the planned incision site. A subcostal incision was made and carried through skin and subcutaneous tissues, anterior rectus sheath, external oblique fascia, internal transverse abdominis. Posterior rectus sheath was incised. Peritoneal cavity was entered and approximately 500 cc of ascites was aspirated immediately. Numerous varices were encounter even in subcutaneous tissues; as these were encountered, they were clamped, divided and ligated with 2-0 Vicryl ligatures. The gallbladder was considerably cephalad with a contracted micronodular cirrhotic liver. There was significant inflammation and yet there was no perforation or abscess noted. The incision was extended medially to the midline and cephalad to the xiphoid process to achieve adequate exposure in this anatomically challenging patient. The Omni-Tract retractor was used to facilitate exposure. The gallbladder was decompressed through the dome and non- foul-smelling thick bile was aspirated. Multiple stones were retrieved and submitted for permanent section along with the final specimen. The gallbladder was taken down from the top. Incising the posterior aspect adjacent to the liver proved difficult as there was no identifiable tissue plane. The gallbladder was entered and the posterior wall of the gallbladder left attached to the liver as the remainder of the gallbladder was dissected down toward the infundibulum. This was then dissected along the triangle of Calot. The cystic artery was in countered was hemoclipped and divided. All the tissues were both acutely and chronically inflamed in appearance and represented a significant risk to common bile duct injury. Blunt dissection was used primarily to break up some of the inflamed and fibrotic fat around the infundibulum until the cystic duct, which was encased in a rind of thickened and inflamed tissue, was the only structure remaining. A single firing of the Endo-MILLICENT 45 stapler with a 1.5 mm staple height was performed to seal the duct as it could not safely be dissected from the surrounding tissues. The specimen was removed from the field and inspected. The course of the cystic duct internally led to the proximal staple. Operative field appeared hemostatic. The area was irrigated with normal saline. A 10 mm flat Pernell-Ornelas drain was brought through a separate stab wound and placed into the subhepatic space, secured to the skin with 3-0 silk suture. The midline fascial incision cephalad to the xiphoid was closed with continuous running #1 PDS suture. The lateral extension of the incision was closed in 2 layers with 2-0 Vicryl suture for the posterior sheath and #1 PDS suture for the anterior sheath. Bilateral On-Q catheters were placed. Subcutaneous tissues were loosely approximated with 3-0 Vicryl suture. Skin was closed with igor. The catheter was secured with Dermabond and Tegaderms. Sterile dressings were applied. Patient was extubated and returned to the recovery room in satisfactory condition. Needle, sponge, and instrument count were correct. COMPLICATIONS: None. /[id number]/MODL MTDD
[2017-05-31 05:47] LABS: % IMMATURE GRANULYOCYTES 0.9 % (0.0-1.1); ABSOLUTE IMMATURE GRANULOCYTES 0.13 10^3/uL (0.00-0.10); ADD DIFF? NO; ADD MORPH? NO; ADD SCAN? NO; ATYPICAL LYMPHOCYTE FLAG 20 (0-99); FRAGMENT RBC FLAG 0 (0-99); LEFT SHIFT FLG 0 (0-99); LIPEMIA HEMOLYSIS FLAG 90 (0-99); MEAN CELL HEMOGLOBIN 33.4 pg (27.9-34.1); MEAN CELL HEMOGLOBIN CONCENTR. 34.2 g/dL (32.4-36.7); MEAN CELL VOLUME 97.7 fL (81.5-99.8); PLATELET CLUMPS FLAG 30 (0-99); PLATELET COUNT 119 10^3/uL (150-400); RED BLOOD CELL COUNT 3.89 10^6/uL (4.40-6.38); RED CELL DISTRIBUTION WIDTH 16.4 % (11.5-15.2)
[2017-05-31 05:54] LABS: ALANINE AMINOTRANSFERASE 50 IU/L (21-72); ALKALINE PHOSPHATASE 95 IU/L (38-126); ANION GAP 7 mEq/L (8-16); ASPARTATE AMINOTRANSFERASE 83 IU/L (17-59); BILIRUBIN,TOTAL 3.5 mg/dL (0.1-1.4); CALCIUM 7.9 mg/dL (8.5-10.4); CARBON DIOXIDE 21 mEq/l (22-31); CHLORIDE 107 mEq/L (97-110); CREATININE 0.7 mg/dL (0.7-1.3); GLOMERULAR FILTRATION RATE > 60; GLUCOSE 91 mg/dL (70-100); POTASSIUM 5.1 mEq/L (3.5-5.2); SODIUM 135 mEq/L (134-144); SPECIMEN HEMOLYSIS 113; TOTAL PROTEIN 5.2 g/dL (6.3-8.2)
[2017-05-31 06:08] LABS: BILIRUBIN-UNCONJUGATED 1.5 mg/dL (0.0-1.1)
[2017-05-31] MEDS: oxyCODONE IR 5 MG TAB PO PRN ×3 (09:13→19:56)
[2017-05-31] MEDS: SPIRONOLACTONE 50 MG TAB PO SCH (09:13)
[2017-05-31] MEDS: NADOLOL 20 MG TAB PO SCH (09:13)
[2017-05-31] MEDS: LACTULOSE 20 GM/30 ML UDCUP PO SCH ×2 (09:13→22:13)
[2017-05-31] MEDS: SENNOSIDES/DOCUSATE SODIUM TAB PO SCH ×2 (09:13→22:13)
[2017-05-31] MEDS: GABAPENTIN 400 MG CAP PO SCH ×2 (09:14→22:18)
[2017-05-31] MEDS: PANTOPRAZOLE SODIUM 40 MG TAB PO SCH (09:14)
[2017-05-31] MEDS: RIFAXIMIN 550 MG TAB PO SCH ×2 (09:14→22:12)
--- NOTE | 2017-05-31 10:21 | HOSPPROG ---
Hospitalist Progress Note Assessment/Plan: 61-year-old male who underwent a cholecystectomy for a gangrenous gallbladder. Patient has done well postoperatively. Patient is new to me today - acute cholecystitis, mild LFT elevation (may be chronic but no old labs here) -postop day 1. Patient is doing well. -leukocytosis d/t acute cholecystitis, and postoperative state. -morbid obesity - lymphedema with lichenification of LE's and chronic venous stasis ulcers - LE' s dressed, reviewed wound care notes - cont wound care -sacral pressure injury - wound care following -cirrhosis - ETOH hx + GARCIA - rifaximin, nadolol, lactulose - mild thrombocytopenia - chronic portal vein thrombosis -atrial fibrillation by history:. Patient reports this diagnosis was made approximately 2-2 and half years ago in [place]. He reports at that time he was put on a beta-artem and hydrochlorothiazide. No anticoagulation was ordered. During this hospitalization he has been in normal sinus rhythm. -S PCM: Secondary to poor nutritional status and a chronic basis and is postoperative state. We will follow his nutritional intake. -coagulopathy - due to above, s/p Vit K -liver lesion 3.5 cm - no biopsy was performed during surgery due to the extensive nature is a cirrhosis and the possibility of bleeding. There was a 500 cc blood loss during the surgery due to cirrhosis and varices. -htn - BP stable this am, holding hctz -peripheral neuropathy - gabapentin - DVT PPLX - SCD's. Will start Lovenox today and watch his platelet count Overall the gentleman is doing well postoperatively. Watch his white count fever cardiac rhythm disturbance and his platelet count. Subjective: Reports he is feeling improved. Says he also cannot take a deep breath without having hiccups or coughing. No complaints of abdominal pain or fever. Objective: Vital Signs Temp Pulse Resp BP Pulse Ox 36.6 C 71 16 147/65 H 98 05/31/17 07:22 05/31/17 09:13 05/31/17 07:22 05/31/17 09:13 05/31/17 07:22 Microbiology 05/30/17 17:19 Gram Stain - Final Gallbladder - Eswab Laboratory Results 05/31/17 05:21 05/31/17 04:43 05/30/17 05/31/17 06/01/17 05:59 05:59 05:59 Intake Total 1058 1640 Output Total 675 1420 105 Balance 383 220 -105 PT 16.4 SEC (12.0-15.0) H 05/28/17 09:01 INR 1.32 (0.83-1.16) H 05/28/17 09:01 Laboratory Tests 05/28/17 05/29/17 05/30/17 09:01 04:30 04:44 WBC 7.71 14.67 H 14.03 H 05/31/17 05:21 WBC 14.57 H Laboratory Tests 05/28/17 05/28/17 05/29/17 09:01 09:01 04:30 WBC 7.71 14.67 H INR 1.32 H Albumin 05/30/17 05/31/17 05/31/17 04:44 04:43 05:21 WBC 14.03 H 14.57 H INR Albumin 2.0 L - Time Spent With Patient Time Spent with Patient: greater than 35 minutes Time Spent with Patient: Greater than 35 minutes spent on this patients care, greater than 50% of time spent counseling, educating, and coordinating care regarding the above mentioned plan. - Pending Discharge Pending Discharge Within 24 Hours: No Pending Discharge Within 48 Hours: No - Physical Exam Constitutional: no apparent distress, obese, other Eyes: PERRL Ears, Nose, Mouth, Throat: moist mucous membranes, hearing normal Cardiovascular: regular rate and rhythym, no murmur, rub, or gallop, JVD ( Cannot assess the JVD and there is no signs of edema. He does have chronic lower extremity venous stasis changing with hyperkeratosis of his skin.) Respiratory: no respiratory distress, no rales or rhonchi, clear to auscultation , reduced air movement Gastrointestinal: normoactive bowel sounds, tenderness (Tenderness overall in especially on the right side. Obese in contour no signs of distention. No voluntary or involuntary guarding) Genitourinary: no bladder fullness Skin: warm, normal color, other (Chronic venous stasis changes peripherally no edema) Musculoskeletal: full muscle strength Neurologic: AAOx3, CN II-XII Intact Psychiatric: interacting appropriately ICD10 Worksheet Patient Problems: Problems Problem Status Onset Abdominal pain Acute Atrial fibrillation Acute Cholecystitis, acute with cholelithiasis Acute Chronic pain due to trauma Acute Cirrhosis Acute Morbid obesity Acute Portal vein thrombosis Acute
[2017-05-31] MEDS ORDERED: ENOXAPARIN 40 MG/0.4 ML SYR SC SCH (12:45)
--- NOTE | 2017-05-31 12:47 | SOAPPROG ---
GISSELL Progress Note Assessment/Plan: Assessment: 1.gangrenous cholecystitis s/p open cholecystectomy 2. cirrhosis unclear etiology 3. portal vein thrombosis/secondary varices 4. morbid obesity 5. A-fib hx 6. NO COR status confirmed Plan: Advance diet increase activity? Lang out tomorrow 05/31/17 12:46 Objective: Vital Signs Temp Pulse Resp BP Pulse Ox 36.4 C 73 16 148/59 H 97 05/31/17 11:43 05/31/17 11:43 05/31/17 11:43 05/31/17 11:43 05/31/17 11:43 Microbiology 05/30/17 17:19 Gram Stain - Final Gallbladder - Eswab Laboratory Results 05/31/17 05:21 05/31/17 04:43 05/30/17 05/31/17 06/01/17 05:59 05:59 05:59 Intake Total 1058 1640 Output Total 675 1420 135 Balance 383 220 -135 PT 16.4 SEC (12.0-15.0) H 05/28/17 09:01 INR 1.32 (0.83-1.16) H 05/28/17 09:01 Physical Exam - Physical Exam General Appearance: alert, mild distress Cardiac/Chest: regular rate, rhythm Abdomen: soft, other (JOLANTA clearing/+BS/dressing intact with some blood oozing midline) ICD10 Worksheet Patient Problems: Problems Problem Status Onset Abdominal pain Acute Atrial fibrillation Acute Cholecystitis, acute with cholelithiasis Acute Chronic pain due to trauma Acute Cirrhosis Acute Morbid obesity Acute Portal vein thrombosis Acute - ICD10 Problem Qualifiers (1) Cirrhosis Qualifiers: Hepatic cirrhosis type: unspecified hepatic cirrhosis Ascites presence: A (2) Portal vein thrombosis (3) Cholecystitis, acute with cholelithiasis Qualifiers: Cholelithiasis location: gallbladder Biliary obstruction: with biliary obstruction Qualified Code(s): K80.01 - Calculus of gallbladder with acute cholecystitis with obstruction (4) Morbid obesity (5) Atrial fibrillation Qualifiers: Atrial fibrillation type: paroxysmal Qualified Code(s): I48.0 - Paroxysmal atrial fibrillation (6) Chronic pain due to trauma
[2017-05-31] MEDS: ENOXAPARIN 60 MG/0.6 ML SYR SC SCH ×2 (12:53→22:15)
[2017-05-31] MEDS: LEVOTHYROXINE 75 MCG TAB PO SCH (22:13)
[2017-06-01] MEDS: oxyCODONE IR 5 MG TAB PO PRN ×2 (02:20→12:47)
[2017-06-01] MEDS: GABAPENTIN 400 MG CAP PO SCH ×2 (10:24→22:03)
[2017-06-01] MEDS: SENNOSIDES/DOCUSATE SODIUM TAB PO SCH ×2 (10:24→22:03)
[2017-06-01] MEDS: NADOLOL 20 MG TAB PO SCH (10:25)
[2017-06-01] MEDS: PANTOPRAZOLE SODIUM 40 MG TAB PO SCH (10:25)
[2017-06-01] MEDS: RIFAXIMIN 550 MG TAB PO SCH ×2 (10:25→22:04)
[2017-06-01] MEDS: SPIRONOLACTONE 50 MG TAB PO SCH ×2 (10:25→22:03)
[2017-06-01] MEDS: LACTULOSE 20 GM/30 ML UDCUP PO SCH ×2 (10:27→22:02)
[2017-06-01] MEDS: ENOXAPARIN 60 MG/0.6 ML SYR SC SCH ×2 (10:31→22:04)
--- NOTE | 2017-06-01 11:47 | PDCONSULT ---
Environmental Tech Note: Mr. Mays is tolerating a regular diet/drain output is increasing c/w ascites wound is uncomplicated/OnQ caths DC'd I increased his Spironolactone to 50mg po BID I discussed his case with Dr. Landry and I believe he is safe to fully anticoagulate, if she believes it to be necessary. Currently he is on Lovenox at [facility] prophylaxis dosing. He plans on returning to [place] after this hospitalization and we should probably start the process of placement and transfer of care for his multiple medical problems. Annalisa Millan MD, FACS
--- NOTE | 2017-06-01 13:18 | HOSPPROG ---
Hospitalist Progress Note Assessment/Plan: - acute cholecystitis, resolving -postop day 2 open cholecystectomy -IV levo/flagyl, transition to oral tomorrow if OK with Dr Millan too -discussed care plan with Dr Millan -morbid obesity -bariatric mattress -hypoxia -chronic for him, stable on 3L - lymphedema with lichenification of LE's and chronic venous stasis ulcers - cont wound care -sacral pressure injury -cont wound care -bariatric mattress -refusing PT/OT, not ambulating -cirrhosis (ETOH hx + GARCIA) - rifaximin, nadolol, lactulose - stable thrombocytopenia - chronic portal vein thrombosis -ascites (drain from jean carlos in place, likely ascites also) -FU re GI, may need inpt consult (sees GI in [place]) -atrial fibrillation by history -sinus rhythm -NOT on anti-coag and not indicated -coagulopathy -due to above, s/p Vit K -liver lesion 3.5 cm - no biopsy was performed during surgery due to the extensive nature is a cirrhosis and the possibility of bleeding. -consider GI eval here -htn -resume home meds -? eval for sleep apnea -peripheral neuropathy - gabapentin -hypothyroid -home med -chronic opioid use -continue outpt dose, + prn post op DVT justyn York PCP- [place], [facility]- Dr. Dunn DNR Dispo- > 2 mdnts as recuperating from surgery, placement issues Subjective: Says OK, lots of pain with movement in bed at incision, but OTW pain OK with current meds. Refusing PT/OT. Denies n/v/d/cp/sob. Wants to go back to [place]. Objective: Vital Signs Temp Pulse Resp BP Pulse Ox 98 F 76 17 136/64 H 96 06/01/17 12:50 06/01/17 12:50 06/01/17 12:50 06/01/17 12:50 06/01/17 12:50 Microbiology 05/30/17 17:19 Gram Stain - Final Gallbladder - Eswab Laboratory Results 05/31/17 05:21 05/31/17 04:43 05/31/17 06/01/17 06/02/17 11:59 11:59 11:59 Intake Total 1640 3100 Output Total 1410 1770 50 Balance 230 1330 -50 PT 16.4 SEC (12.0-15.0) H 05/28/17 09:01 INR 1.32 (0.83-1.16) H 05/28/17 09:01 - Time Spent With Patient Time Spent with Patient: greater than 25 minutes Time Spent with Patient: Greater than 25 minutes spent on this patients care, greater than 50% of time spent counseling, educating, and coordinating care regarding the above mentioned plan. - Pending Discharge Pending Discharge Within 24 Hours: No - Physical Exam Constitutional: obese, unkempt Eyes: PERRL, anicteric sclera, EOMI Ears, Nose, Mouth, Throat: moist mucous membranes, hearing normal, ears appear normal Cardiovascular: regular rate and rhythym, no murmur, rub, or gallop Respiratory: no respiratory distress, no rales or rhonchi, clear to auscultation Gastrointestinal: normoactive bowel sounds, tenderness (around R UQ incision, but incision CDI) Psychiatric: interacting appropriately, not anxious, not encephalopathic, thought process linear ICD10 Worksheet Patient Problems: Problems Problem Status Onset Abdominal pain Acute Atrial fibrillation Acute Cholecystitis, acute with cholelithiasis Acute Chronic pain due to trauma Acute Cirrhosis Acute Morbid obesity Acute Portal vein thrombosis Acute
[2017-06-01] MEDS: DOCUSATE SODIUM 100 MG CAP PO SCH ×2 (13:53→22:03)
[2017-06-01] MEDS: HYDROCHLOROTHIAZIDE 12.5 MG CAP PO SCH (13:55)
[2017-06-01] MEDS: oxyCODONE IR 5 MG TAB PO SCH ×2 (14:00→22:03)
[2017-06-01] MEDS: LEVOTHYROXINE 75 MCG TAB PO SCH (22:04)
[2017-06-02 05:16] LABS: % IMMATURE GRANULYOCYTES 0.6 % (0.0-1.1); ABSOLUTE IMMATURE GRANULOCYTES 0.07 10^3/uL (0.00-0.10); ADD DIFF? NO; ADD MORPH? NO; ADD SCAN? NO; ATYPICAL LYMPHOCYTE FLAG 10 (0-99); FRAGMENT RBC FLAG 0 (0-99); HEMATOCRIT 32.4 % (40.0-51.0); HEMOGLOBIN 11.1 g/dL (13.7-17.5); LEFT SHIFT FLG 0 (0-99); LIPEMIA HEMOLYSIS FLAG 90 (0-99); MEAN CELL HEMOGLOBIN 33.4 pg (27.9-34.1); MEAN CELL HEMOGLOBIN CONCENTR. 34.3 g/dL (32.4-36.7); MEAN CELL VOLUME 97.6 fL (81.5-99.8); MEAN PLATELET VOLUME 9.4 fL (8.7-11.7); PLATELET CLUMPS FLAG 20 (0-99); PLATELET COUNT 103 10^3/uL (150-400); RED BLOOD CELL COUNT 3.32 10^6/uL (4.40-6.38); RED CELL DISTRIBUTION WIDTH 16.5 % (11.5-15.2)
[2017-06-02 05:35] LABS: ALANINE AMINOTRANSFERASE 45 IU/L (21-72); ALBUMIN 1.6 g/dL (3.5-5.0); ALKALINE PHOSPHATASE 94 IU/L (38-126); ANION GAP 6 mEq/L (8-16); ASPARTATE AMINOTRANSFERASE 66 IU/L (17-59); BILIRUBIN,TOTAL 1.9 mg/dL (0.1-1.4); CALCIUM 7.8 mg/dL (8.5-10.4); CARBON DIOXIDE 20 mEq/l (22-31); CHLORIDE 104 mEq/L (97-110); CREATININE 0.7 mg/dL (0.7-1.3); GLOMERULAR FILTRATION RATE > 60; GLUCOSE 83 mg/dL (70-100); POTASSIUM 4.2 mEq/L (3.5-5.2); SODIUM 130 mEq/L (134-144); TOTAL PROTEIN 4.4 g/dL (6.3-8.2)
--- NOTE | 2017-06-02 09:02 | PDCONSULT ---
Fitness Attendant Note: Mr. Hackett is resting comfortably and enjoying breakfast. He has persistant high JOLANTA output consistant with recurrent ascites post op wbc remains mildly elevated/no temps/biliary cultures no growth so far. surgical site appears uncomplicated. Rec: continue Aldactone, Abx I will likely leave the drain in for a couple of weeks to allow the wound to heal. o.k to transition to po Abx/? DC planning-patient acknowledges that he has no options in [place] now and plans on returning to [facility]. Annalisa Millan MD, FACS
[2017-06-02] MEDS: SENNOSIDES/DOCUSATE SODIUM TAB PO SCH ×2 (09:30→19:49)
[2017-06-02] MEDS: LACTULOSE 20 GM/30 ML UDCUP PO SCH ×2 (09:30→19:51)
[2017-06-02] MEDS: PANTOPRAZOLE SODIUM 40 MG TAB PO SCH (09:31)
[2017-06-02] MEDS: SPIRONOLACTONE 50 MG TAB PO SCH ×2 (09:31→19:50)
[2017-06-02] MEDS: NADOLOL 20 MG TAB PO SCH (09:31)
[2017-06-02] MEDS: oxyCODONE IR 5 MG TAB PO SCH ×2 (09:31→22:34)
[2017-06-02] MEDS: GABAPENTIN 400 MG CAP PO SCH ×2 (09:31→19:49)
[2017-06-02] MEDS: DOCUSATE SODIUM 100 MG CAP PO SCH ×2 (09:31→19:50)
[2017-06-02] MEDS: ENOXAPARIN 60 MG/0.6 ML SYR SC SCH ×2 (09:32→19:51)
[2017-06-02] MEDS: HYDROCHLOROTHIAZIDE 12.5 MG CAP PO SCH (09:32)
--- NOTE | 2017-06-02 12:20 | HOSPPROG ---
Hospitalist Progress Note Assessment/Plan: - acute cholecystitis, resolving -postop day 3 open cholecystectomy -transition to oral levo/flagyl -morbid obesity -bariatric mattress -hypoxia -chronic for him, stable on 3L -known NADIA, refuses treatment - lymphedema with lichenification of LE's and chronic venous stasis ulcers - cont wound care -sacral pressure injury -cont wound care -bariatric mattress -refusing PT/OT, not ambulating -cirrhosis (ETOH hx + GARCIA) - rifaximin, nadolol, lactulose - stable thrombocytopenia - chronic portal vein thrombosis -ascites (drain from jean carlos in place, likely ascites also) -may need inpt consult (sees GI in [place] but not for yrs per his report, records requested) -atrial fibrillation by history -sinus rhythm -NOT on anti-coag and not indicated -coagulopathy -due to cirrhosis, s/p Vit K -recheck INR -liver lesion 3.5 cm - no biopsy was performed during surgery due to the extensive nature is a cirrhosis and the possibility of bleeding -consider GI eval here -htn -resume home meds -has NADIA, refuses CPAP -peripheral neuropathy - gabapentin -hypothyroid -home med -recheck TSH -chronic opioid use -continue outpt dose, + prn post op -hyponatremia -mild, follow closely, may need to adjust diuretics -anemia, post op -follow, check iron DVT justyn York PCP- [place], [facility]- Dr. Dunn DNR Dispo- > 2 mdnts as recuperating from surgery, plan to go to [facility] when OK per Dr Millan Subjective: Coughing bc of sinus drainage (chronic for him), exacerbating post op pain. OTW feels OK, denies n/v/d/CP/SOB. Has sleep apnea, refuses to wear CPAP. Last saw GI a few yrs ago. Objective: Vital Signs Temp Pulse Resp BP Pulse Ox 98.0 F 70 18 131/50 H 97 06/02/17 07:38 06/02/17 07:38 06/02/17 07:38 06/02/17 07:38 06/02/17 07:38 Microbiology 05/30/17 17:19 Gram Stain - Final Gallbladder - Eswab Laboratory Results 06/02/17 04:58 06/02/17 04:58 06/01/17 06/02/17 06/03/17 11:59 11:59 11:59 Intake Total 3100 2031 Output Total 1870 2320 Balance 1230 -288 PT 16.4 SEC (12.0-15.0) H 05/28/17 09:01 INR 1.32 (0.83-1.16) H 05/28/17 09:01 - Pending Discharge Pending Discharge Within 48 Hours: Yes Pending Discharge Date: 06/04/17 Pending Discharge Time: 11:00 - Physical Exam Constitutional: no apparent distress, obese, unkempt Eyes: anicteric sclera, EOMI Ears, Nose, Mouth, Throat: moist mucous membranes, hearing normal Cardiovascular: regular rate and rhythym, edema (chronic) Respiratory: no respiratory distress, no rales or rhonchi, clear to auscultation Gastrointestinal: normoactive bowel sounds, tenderness (around RUQ incision), distension, other (drain with serosanguinous fluid), No guarding, No rebound Skin: other (B feet with edema, flaking, onychomycosis (all chronic changes)) Psychiatric: interacting appropriately, not anxious, not encephalopathic, thought process linear ICD10 Worksheet Patient Problems: Problems Problem Status Onset Abdominal pain Acute Atrial fibrillation Acute Cholecystitis, acute with cholelithiasis Acute Chronic pain due to trauma Acute Cirrhosis Acute Morbid obesity Acute Portal vein thrombosis Acute
[2017-06-02] MEDS: RIFAXIMIN 550 MG TAB PO SCH ×2 (14:38→19:50)
[2017-06-02] MEDS: metroNIDAZOLE 500 MG TAB PO SCH ×2 (14:38→22:35)
[2017-06-02] MEDS: LEVOTHYROXINE 75 MCG TAB PO SCH (19:50)
[2017-06-03 05:30] LABS: HEMATOCRIT 37.1 % (40.0-51.0); HEMOGLOBIN 13.3 g/dL (13.7-17.5); MEAN CELL HEMOGLOBIN 33.9 pg (27.9-34.1); MEAN CELL HEMOGLOBIN CONCENTR. 35.8 g/dL (32.4-36.7); MEAN CELL VOLUME 94.6 fL (81.5-99.8); RED BLOOD CELL COUNT 3.92 10^6/uL (4.40-6.38); RED CELL DISTRIBUTION WIDTH 16.4 % (11.5-15.2)
[2017-06-03] MEDS: metroNIDAZOLE 500 MG TAB PO SCH ×3 (05:34→21:55)
[2017-06-03 05:40] LABS: INR 1.48 (0.83-1.16); PROTIME(PATIENT) 17.9 SEC (12.0-15.0)
[2017-06-03 05:51] LABS: ALANINE AMINOTRANSFERASE 41 IU/L (21-72); ALBUMIN 1.9 g/dL (3.5-5.0); ALKALINE PHOSPHATASE 94 IU/L (38-126); ANION GAP 7 mEq/L (8-16); ASPARTATE AMINOTRANSFERASE 54 IU/L (17-59); BILIRUBIN,TOTAL 2.3 mg/dL (0.1-1.4); CALCIUM 8.5 mg/dL (8.5-10.4); CARBON DIOXIDE 24 mEq/l (22-31); CHLORIDE 101 mEq/L (97-110); CREATININE 0.7 mg/dL (0.7-1.3); GLOMERULAR FILTRATION RATE > 60; GLUCOSE 93 mg/dL (70-100); SODIUM 132 mEq/L (134-144); TOTAL PROTEIN 4.9 g/dL (6.3-8.2)
[2017-06-03 06:01] LABS: % SATURATION 38 % (20-55); TOTAL IRON BINDING CAPACITY 159 ug/dL (260-490)
[2017-06-03 06:36] LABS: BILIRUBIN-CONJUGATED 0.9 mg/dL (0.0-0.5); BILIRUBIN-UNCONJUGATED 1.4 mg/dL (0.0-1.1)
--- NOTE | 2017-06-03 08:13 | PDCONSULT ---
Camp Coordinator Note: Patient had emesis early this morning/ongoing incisional pain had 2 small BMs yesterday Abd: soft/hypoactive bowel sounds, incision is o.k., JOLANTA drainage serous ascites Alb 1.9 Imp: post op ileus/secondary emesis significant ascites Rec: 25% albumin BID/continue Aldactone I would continue drainage for now to avoid wound complications Supportive care Annalisa Millan MD, FACS
[2017-06-03] MEDS ORDERED: PANTOPRAZOLE SODIUM 40 MG in NS 100 ML IV SCH (09:00)
[2017-06-03] MEDS: DOCUSATE SODIUM 100 MG CAP PO SCH (10:25)
[2017-06-03] MEDS: ALBUMIN 25% 100 ML IV SCH ×2 (11:12→21:55)
[2017-06-03] MEDS: ENOXAPARIN 60 MG/0.6 ML SYR SC SCH ×2 (11:19→21:54)
[2017-06-03] MEDS: HYDROCHLOROTHIAZIDE 12.5 MG CAP PO SCH (11:21)
[2017-06-03] MEDS: SPIRONOLACTONE 50 MG TAB PO SCH ×2 (11:21→21:55)
[2017-06-03] MEDS: NADOLOL 20 MG TAB PO SCH (11:21)
[2017-06-03] MEDS: GABAPENTIN 400 MG CAP PO SCH ×2 (11:22→21:55)
[2017-06-03] MEDS: RIFAXIMIN 550 MG TAB PO SCH ×3 (11:22→21:54)
[2017-06-03] MEDS: oxyCODONE IR 5 MG TAB PO SCH ×2 (11:23→21:55)
[2017-06-03] MEDS: LACTULOSE 20 GM/30 ML UDCUP PO SCH ×2 (11:24→21:54)
[2017-06-03] MEDS: SENNOSIDES/DOCUSATE SODIUM TAB PO SCH ×2 (12:37→23:49)
--- NOTE | 2017-06-03 12:43 | GCON ---
[f rep st] CONSULTATION GI INPATIENT CONSULTATION DATE OF CONSULTATION: 06/03/2017 REASON FOR CONSULTATION: I was kindly requested to see this patient by Dr. Soraida Landry in consultation for a chief complaint of cirrhosis. HISTORY OF PRESENT ILLNESS: He is a 61-year-old white male who has had a long history of the above. He is followed in [place] for this. He was admitted to the hospital with acute abdominal pain in the right upper quadrant, and underwent a cholecystectomy. He has a J-P drain in place. He has had approximately a liter of drainage over the last several days from this. Upon admission, his weight was 185 kg; now. it is 197 kg. With his cirrhosis, it is not known if he has had complications with ascites. However, one of his admission outpatient medications is hydrochlorothiazide 12.5 mg daily. On admission, a CT scan of the abdomen and pelvis did not mention significant ascites. He has had a postoperative ileus. He had some vomiting this morning. PAST MEDICAL HISTORY: 1. As above. 2. Lymphedema with venous stasis dermatitis. 3. Hypertension. 4. Reflux. 5. Neuropathy. 6. Thyroid disorder. PAST SURGICAL HISTORY: Cataract surgery. MEDICATIONS: As an outpatient, include lactulose, Xifaxan, Neurontin, Synthroid , hydrochlorothiazide, nadolol, omeprazole 40 mg daily and oxycodone twice a day. Inpatient medications include regular diet, nadolol, Synthroid, Flagyl, 25 % albumin twice a day which was just started, Aldactone 50 mg twice a day, Colace, Lovenox, Neurontin, hydrochlorothiazide, lactulose 20 g twice a day, pantoprazole 40 mg IV twice a day and Xifaxan. ALLERGIES: Include strawberries. SOCIAL HISTORY: He rarely uses alcohol. He is originally from [place]. His primary care physician's office is [facility] (he cannot remember the woman's name). He is followed by GI in [place], but has not been seen lately. He is a DNR. FAMILY HISTORY: Negative for similar liver disease. REVIEW OF SYSTEMS: Positive pertinent review of systems as per my HPI. Otherwise, a complete review of systems is negative. PHYSICAL EXAM: CONSTITUTIONAL: A chronically ill-appearing, obese gentleman. SKIN: Warm, dry, with significant breakdown on his lower extremities. EYES: Pupils equal, round, and reactive to light and accommodation. EARS, NOSE, MOUTH AND THROAT: Oropharynx without masses. Moist mucosa. CARDIOVASCULAR: Normal S2. Normal PMI. RESPIRATORY: Lungs clear to auscultation and percussion anteriorly. ABDOMEN: Obese. He has igor in a post cholecystectomy scar. J-P drain in place. Soft. Difficult to assess if he has or the degree of ascites. EXTREMITIES: Venous stasis. Hard to assess the degree of pedal edema. NEUROLOGIC: Grossly nonfocal. Cranial nerves grossly intact. PSYCHIATRIC: Orientation, insight appropriate. MUSCULOSKELETAL: Strength grossly normal throughout. Normal sensation. LABORATORIES: Include a normal TSH. White count 11.3, hematocrit stable at 37.1%, platelet count 143,000. Prothrombin time 17.9 with an INR of 1.48. Iron saturation 38%. Total bilirubin 2.3, but mostly unconjugated. Today, AST , ALT and alkaline phosphatase normal. Albumin 1.9. Electrolytes show a sodium of 132. IMAGING: The above CT also showed cirrhosis and a chronic portal vein thrombosis. There is mention of varices around the spleen and left kidney, which could be due to a splenorenal shunt. There is mention of a 3.5 cm hypodense lesion in the anterior dome of the liver, with a recommendation for a multi phase CT scan at some point. ASSESSMENT: 1. Pernell-Ornelas drainage. With his known cirrhosis and his 12 kg weight gain in the hospital, certainly he may have developed some ascites. 2. Vomiting this morning. With his somewhat hypoactive bowel sounds, suspect a continued postoperative ileus. 3. Cirrhosis. PLAN: 1. Agree with Aldactone 50 mg twice a day. With a sodium of 132, would most likely not recommend increasing this for now. 2. Agree with albumin twice a day; as per Dr. Millan. 3. Instead of hydrochlorothiazide, while an inpatient, I will change him to Lasix 40 mg daily. This will offer better diuresis. Would recommend a goal of decreasing his weight by 1 pound daily until he returns to his admission weight of 185 kg. If necessary, okay to increase his Lasix to accomplish this. Would recommend periodic electrolytes and creatinine to make sure they remain stable. Upon discharge, he can then be returned to his usual outpatient hydrochlorothiazide. 4. Management of his postoperative ileus as per Dr. Millan. 5. Will change him back to his outpatient oral PPI. 6. For the 3.5 cm hypodense lesion seen in the anterior dome of his liver on admission CT scan, I will check an alpha fetoprotein. 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 As per the hospitalist service. At this point, we will follow the patient informally. Please call with any questions. Otherwise, thank you for allowing me to help with the management this patient. [id number]MODL MTDD
[2017-06-03] MEDS ORDERED: DOCUSATE SODIUM 100 MG CAP PO PRN (12:46)
[2017-06-03] MEDS: FUROSEMIDE 40 MG TAB PO SCH (13:39)
--- NOTE | 2017-06-03 13:45 | HOSPPROG ---
Hospitalist Progress Note Assessment/Plan: - acute cholecystitis, resolving -postop day 4 open cholecystectomy -oral levo/flagyl -? post op ileus -morbid obesity -bariatric mattress -refuses pt/ot, tried to talk with him to start even a small amount of movement, he'll consider -hypoxia -chronic for him, stable on 3L -known NADIA, refuses treatment - lymphedema with lichenification of LE's and chronic venous stasis ulcers - cont wound care, OK to weight bear per RN -sacral pressure injury -cont wound care -bariatric mattress -refusing PT/OT, not ambulating -cirrhosis (ETOH hx + GARCIA) - rifaximin, nadolol, lactulose - stable thrombocytopenia - chronic portal vein thrombosis -ascites (drain from jean carlos in place, likely ascites also) -says saw Dr Baez in [facility], staff trying to get records, Dr Mcintosh GI consulted, discussed care plan with him, appreciate his assistance -atrial fibrillation by history -sinus rhythm -NOT on anti-coag and not indicated -coagulopathy -due to cirrhosis, s/p Vit K -INR sl elevation noted -liver lesion 3.5 cm -no biopsy was performed during surgery due to the extensive nature is a cirrhosis and the possibility of bleeding -Dr Mcintosh consulted, see above -htn -resume home meds -has NADIA, refuses CPAP, refusing O2 also -peripheral neuropathy - gabapentin -hypothyroid -home med -TSH OK -chronic opioid use -continue outpt dose, + prn post op -hyponatremia -mild -diuretic adjusted by Dr Mcintosh -anemia, post op -follow -iron nl but low end DVT prophtosha [place] PCP- [place], [facility]- Dr. Dunn DNR Dispo- > 2 mdnts as recuperating from surgery, plan to go to [facility] when OK per Dr Millan Subjective: Says too uncomfortable to try PT/OT, refuses to try any exercises/ ambulation. Some n/v today. Refusing O2 and CPAP. flanger and RN in room. Says he wants to go home to [place], admits not getting out of a bed since une. Objective: Vital Signs Temp Pulse Resp BP Pulse Ox 97.7 F 73 18 128/59 H 93 06/03/17 08:57 06/03/17 08:57 06/03/17 08:57 06/03/17 08:57 06/03/17 08:57 Microbiology 05/30/17 17:19 Gram Stain - Final Gallbladder - Eswab Laboratory Results 06/03/17 05:15 06/03/17 05:15 06/02/17 06/03/17 06/04/17 11:59 11:59 11:59 Intake Total 2032 950 Output Total 3054 3033 Balance -328 -4653 PT 17.9 SEC (12.0-15.0) H 06/03/17 05:15 INR 1.48 (0.83-1.16) H 06/03/17 05:15 - Time Spent With Patient Time Spent with Patient: greater than 25 minutes Time Spent with Patient: Greater than 25 minutes spent on this patients care, greater than 50% of time spent counseling, educating, and coordinating care regarding the above mentioned plan. - Pending Discharge Pending Discharge Within 48 Hours: No - Physical Exam Constitutional: obese, unkempt Eyes: anicteric sclera, EOMI Ears, Nose, Mouth, Throat: moist mucous membranes Cardiovascular: regular rate and rhythym, edema Respiratory: no respiratory distress, other (decreased BS throughout) Gastrointestinal: other (RUQ incision CDI, JOLANTA with serosanguinous fluid), No guarding, No rebound Skin: other (B legs in wraps, very dry, edematous, wounds revwd with fill plant operator and RN) Psychiatric: interacting appropriately, not anxious, not encephalopathic, poor insight ICD10 Worksheet Patient Problems: Problems Problem Status Onset Abdominal pain Acute Atrial fibrillation Acute Cholecystitis, acute with cholelithiasis Acute Chronic pain due to trauma Acute Cirrhosis Acute Morbid obesity Acute Portal vein thrombosis Acute
--- NOTE | 2017-06-03 13:52 | WOCRNPDOC ---
WOCRN Advanced Assessment Note - Skin Integrity Problem, Advanced Assess Left Heel Dressing Type: Hydrofera Blue Ready, Mepilex Dressing Description: Intact Exudate Amount: Scant Exudate Color: Reddish/Yellow Exudate Characteristic(s): Serosanguinous Integumentary Issue Intervention: Dressing Changed, Visualized Under Dressing Danika Wound Tissue: Blanching, Erythema, Hemosiderin Staining, Venous Dermatitis Danika Wound Swelling: Mild Wound Bed Color: Red Wound Bed Constitution: Smooth Tissue (non-granulating) Wound Edges: Well Defined Site Odor: None Site Measurement - Head-to-Toe Length X Width X Depth (cm): 3.8cmx2.1cmx0.3cm Skin Integrity Problem Comment: Non-granulating tissue noted throughout wound bed, w/ no necrosis observed. Tissue is smooth, appearance consistent w/ chronic , non-healing wound. Danika-wound skin is soft, currently blanching. Per patient, this wound began as a blister r/t swelling/lymphadema in this extremity. Changed order to include moderate compression w/ Spandagrip stockings supplied by wound care. Right Posterior Lower Leg Dressing Type: Allevyn Life Exudate Amount: Scant Exudate Color: Red Exudate Characteristic(s): Bloody Integumentary Issue Intervention: Dressing Changed, Silver Gel Applied Danika Wound Tissue: Scaly, Hemosiderin Staining, Venous Dermatitis, Dry Danika Wound Swelling: None Wound Bed Color: Red Wound Bed Constitution: Smooth Tissue (non-granulating) Wound Edges: Well Defined Site Odor: None Site Measurement - Head-to-Toe Length X Width X Depth (cm): 2.8x1.7x0.2 Skin Integrity Problem Comment: Oval-shaped wound w/ red, non-granulating smooth tissue throughout, no necrosis noted. Danika-wound skin is dry, scaly w/ venous dermatitis throughout. Though these wound margins are well-defined, the other skin changes throughout this extremity suggest that this wound is due, in part, to venous stasis. Changed order to include Spandagrip stockings (size G), as previous order to wrap w/ BRISSA wraps does not appear to be providing enough compression.
[2017-06-03] MEDS: SODIUM CL NASAL 45 ML BTL EACHNARE PRN (16:31)
[2017-06-03] MEDS: OXYMETAZOLINE 30 ML NASAL SPRAY EACHNARE SCH ×2 (17:44→23:48)
[2017-06-03 19:12] LABS: CLOSTRIDIUM DIFFICILE DNA POSITIVE (NEGATIVE)
[2017-06-03 19:13] LABS: PRINT OR CALL CRITICALS TECH CALL
[2017-06-03] MEDS: LEVOTHYROXINE 75 MCG TAB PO SCH (21:54)
[2017-06-04] MEDS: metroNIDAZOLE 500 MG TAB PO SCH (05:59)
[2017-06-04 06:07] LABS: ANION GAP 7 mEq/L (8-16); CARBON DIOXIDE 24 mEq/l (22-31); CHLORIDE 103 mEq/L (97-110); CREATININE 0.7 mg/dL (0.7-1.3); GLOMERULAR FILTRATION RATE > 60; GLUCOSE 77 mg/dL (70-100); POTASSIUM 3.5 mEq/L (3.5-5.2); SODIUM 134 mEq/L (134-144)
[2017-06-04 06:37] LABS: ALPHA-FETOPROTEIN TUMOR MARKER 1.01 ng/mL (0.00-7.51)
[2017-06-04] MEDS: ALBUMIN 25% 100 ML IV SCH (09:00)
[2017-06-04] MEDS: LACTULOSE 20 GM/30 ML UDCUP PO SCH (09:43)
[2017-06-04] MEDS: SPIRONOLACTONE 50 MG TAB PO SCH ×2 (09:43→21:42)
[2017-06-04] MEDS: ENOXAPARIN 60 MG/0.6 ML SYR SC SCH ×2 (09:43→21:40)
[2017-06-04] MEDS: FUROSEMIDE 40 MG TAB PO SCH (09:43)
[2017-06-04] MEDS: GABAPENTIN 400 MG CAP PO SCH ×2 (09:43→21:42)
[2017-06-04] MEDS: oxyCODONE IR 5 MG TAB PO SCH ×2 (09:44→21:41)
[2017-06-04] MEDS: PANTOPRAZOLE SODIUM 40 MG TAB PO SCH (09:44)
[2017-06-04] MEDS: RIFAXIMIN 550 MG TAB PO SCH ×2 (09:44→21:41)
[2017-06-04] MEDS: NADOLOL 20 MG TAB PO SCH (09:45)
[2017-06-04] MEDS: SODIUM CL NASAL 45 ML BTL EACHNARE PRN (11:14)
[2017-06-04] MEDS: OXYMETAZOLINE 30 ML NASAL SPRAY EACHNARE SCH ×2 (12:01→21:44)
[2017-06-04] MEDS: SENNOSIDES/DOCUSATE SODIUM TAB PO SCH ×2 (12:01→21:43)
--- NOTE | 2017-06-04 13:43 | PDCONSULT ---
Territory Sales Consultant Note: JOLANTA drainage has dropped to 100ml/24 hours drain was removed/incision o.k. + C diff with diarrhea Will stop Levaquin/Flagyl + continue oral Vanco diet as tolerated S MD Yana, FACS
--- NOTE | 2017-06-04 16:06 | HOSPPROG ---
Hospitalist Progress Note Assessment/Plan: * Gangrenous cholecystitis s/p open jean carlos -d/w Dr. Millan - ok to stop Levo/Flagyl * Cdiff -PO Vanco * Super morbid obesity BMI 59 * Cirrhosis of liver due to GARCIA/Etoh -ascites improved with IV albumin + diuretics -drain pulled today by Dr. Millan * Obesity hypoventilation syndrome + NADIA -baseline 3L -refuses CPAP * Chronic venous stasis * Sacral pressure ulcer (POA) -bariatric bed -refuses PT/OT * h/o hepatic encephalopathy -lactulose, rifaximin * Hepatic mass 3.5 cm -AFP normal -outpatient triple phase CT of liver * Chronic portal vein thrombosis * Chronic pain with continuous narcotic dependency Subjective: No new complaints. N/V resolved. Objective: Vital Signs Temp Pulse Resp BP Pulse Ox 36.4 C 75 16 138/53 H 95 06/04/17 08:00 06/04/17 08:00 06/04/17 08:00 06/04/17 08:00 06/04/17 08:00 Microbiology 05/30/17 17:19 Gram Stain - Final Gallbladder - Eswab Laboratory Results 06/03/17 05:15 06/04/17 05:27 06/03/17 06/04/17 06/05/17 05:59 05:59 05:59 Intake Total 1450 750 Output Total 5920 3110 555 Balance -4470 -2360 -555 PT 17.9 SEC (12.0-15.0) H 06/03/17 05:15 INR 1.48 (0.83-1.16) H 06/03/17 05:15 CT abd - 3.5 cm lesion of liver - Physical Exam Constitutional: no apparent distress, appears nourished, not in pain Cardiovascular: regular rate and rhythym, no murmur, rub, or gallop Respiratory: no respiratory distress, no rales or rhonchi, clear to auscultation Gastrointestinal: normoactive bowel sounds, soft, non-tender abdomen, no palpable masses Skin: no rashes or abrasions, no fluctuance, no induration Neurologic: AAOx3, sensation intact bilaterally Psychiatric: interacting appropriately, not anxious, not encephalopathic, thought process linear ICD10 Worksheet Patient Problems: Problems Problem Status Onset Abdominal pain Acute Atrial fibrillation Acute C. difficile diarrhea Acute ~06/03/17 Cholecystitis, acute with cholelithiasis Acute Chronic pain due to trauma Acute Cirrhosis Acute Morbid obesity Acute Portal vein thrombosis Acute
[2017-06-04] MEDS: VANCOMYCIN 125 MG/2.5 ML UDL PO SCH ×2 (16:33→21:41)
--- NOTE | 2017-06-04 20:38 | SOAPPROG ---
SOAP Progress Note Assessment/Plan: Assessment/Plan: 1. High J-P drainage, weight gain during this hospitalization. J-P drainage improved, to the point it was removed today. I/Os negative close to 1 liter. - please see my A/P/Recs from yesterday's consultation note 2. N/V. Resolved. 3. Abnormal CT scan on admission, with a liver lesion noted. AFP normal. - please see my A/P/Recs from yesterday's consultation note 4. Multiple b.m.s, c. diff positive. Agree with d/c 'biots, oral vanco - will stop his lactulose, as he's already having frequent bowel movements with the above. Once resolved, o.k. to restart. Will sign off; please call if we can be of further help [phone]). Thanks! 06/04/17 20:42 Subjective: cc: cirrhosis No further N/V. Denies rigors, chills, sweats. Objective: Vital Signs Temp Pulse Resp BP Pulse Ox 36.5 C 86 20 138/49 H 94 06/04/17 16:00 06/04/17 16:00 06/04/17 16:00 06/04/17 16:00 06/04/17 16:00 Microbiology 05/30/17 17:19 Gram Stain - Final Gallbladder - Eswab Laboratory Results 06/03/17 05:15 06/04/17 05:27 06/03/17 06/04/17 06/05/17 05:59 05:59 05:59 Intake Total 1450 750 450 Output Total 5920 3110 1255 Balance -1200 -2360 -805 PT 17.9 SEC (12.0-15.0) H 06/03/17 05:15 INR 1.48 (0.83-1.16) H 06/03/17 05:15 I/Os - 800 ml, with good diuresis the prior two days. AFP nl Physical Exam - Physical Exam General Appearance: alert, obese EENT: PERRL/EOMI, normal ENT inspection, pharynx normal, TMs normal Neck: non-tender, full range of motion, supple, normal inspection Respiratory: chest non-tender, lungs clear, normal breath sounds Cardiac/Chest: normal peripheral pulses, regular rate, rhythm Peripheral Pulses: 2+: carotid (R), carotid (L), femoral (R), femoral (L), dorsalis-pedis (R), dorsalis-pedis (L) Abdomen: normal bowel sounds, soft, No non-tender (tender at incisional site. Morbidly obese.) Male Genitalia: deferred Rectal: deferred Back: Normal inspection Skin: normal color, warm/dry Lymphatic: no adenopathy Extremities: normal range of motion, non-tender, normal inspection, normal capillary refill Neuro/Psych: no motor/sensory deficits, alert, normal mood/affect, oriented x 3 ICD10 Worksheet Patient Problems: Problems Problem Status Onset Abdominal pain Acute Atrial fibrillation Acute C. difficile diarrhea Acute ~06/03/17 Cholecystitis, acute with cholelithiasis Acute Chronic pain due to trauma Acute Cirrhosis Acute Morbid obesity Acute Portal vein thrombosis Acute
[2017-06-04] MEDS: LEVOTHYROXINE 75 MCG TAB PO SCH (21:41)
[2017-06-05] MEDS: VANCOMYCIN 125 MG/2.5 ML UDL PO SCH ×4 (05:44→22:01)
[2017-06-05 05:46] LABS: % IMMATURE GRANULYOCYTES 0.6 % (0.0-1.1); ABSOLUTE IMMATURE GRANULOCYTES 0.04 10^3/uL (0.00-0.10); ABSOLUTE NRBC COUNT 0.02 10^3/uL (0-0.01); ADD DIFF? NO; ADD MORPH? NO; ADD SCAN? NO; ATYPICAL LYMPHOCYTE FLAG 10 (0-99); FRAGMENT RBC FLAG 0 (0-99); HEMATOCRIT 31.6 % (40.0-51.0); HEMOGLOBIN 10.7 g/dL (13.7-17.5); LEFT SHIFT FLG 0 (0-99); LIPEMIA HEMOLYSIS FLAG 90 (0-99); MEAN CELL HEMOGLOBIN CONCENTR. 33.9 g/dL (32.4-36.7); MEAN CELL VOLUME 97.5 fL (81.5-99.8); MEAN PLATELET VOLUME 9.4 fL (8.7-11.7); NRBC-AUTO% 0.3 % (0.0-0.2); PLATELET CLUMPS FLAG 0 (0-99); PLATELET COUNT 107 10^3/uL (150-400); RED BLOOD CELL COUNT 3.24 10^6/uL (4.40-6.38)
[2017-06-05 06:02] LABS: ALANINE AMINOTRANSFERASE 37 IU/L (21-72); ALBUMIN 1.9 g/dL (3.5-5.0); ALKALINE PHOSPHATASE 56 IU/L (38-126); ANION GAP 7 mEq/L (8-16); ASPARTATE AMINOTRANSFERASE 48 IU/L (17-59); BILIRUBIN,TOTAL 1.6 mg/dL (0.1-1.4); BILIRUBIN-CONJUGATED 0.6 mg/dL (0.0-0.5); CALCIUM 7.8 mg/dL (8.5-10.4); CARBON DIOXIDE 25 mEq/l (22-31); CHLORIDE 103 mEq/L (97-110); CREATININE 0.8 mg/dL (0.7-1.3); GLOMERULAR FILTRATION RATE > 60; GLUCOSE 77 mg/dL (70-100); POTASSIUM 3.5 mEq/L (3.5-5.2); SODIUM 135 mEq/L (134-144); TOTAL PROTEIN 4.5 g/dL (6.3-8.2)
--- NOTE | 2017-06-05 08:07 | PDCONSULT ---
Waist Pleater Note: Mr. Hackett is resting comfortably He has no drainage from his JOLANTA site or his incision and is tolerating a regular diet. He is stable for transfer to SNF from a surgical viewpoint and will need staple removal next week. Annalisa Millan MD, FACS
[2017-06-05] MEDS: GABAPENTIN 400 MG CAP PO SCH ×2 (09:03→22:01)
[2017-06-05] MEDS: oxyCODONE IR 5 MG TAB PO SCH ×2 (09:04→22:02)
[2017-06-05] MEDS: FUROSEMIDE 40 MG TAB PO SCH (09:05)
[2017-06-05] MEDS: PANTOPRAZOLE SODIUM 40 MG TAB PO SCH (09:05)
[2017-06-05] MEDS: RIFAXIMIN 550 MG TAB PO SCH ×2 (09:05→22:01)
[2017-06-05] MEDS: NADOLOL 20 MG TAB PO SCH (09:06)
[2017-06-05] MEDS: SPIRONOLACTONE 50 MG TAB PO SCH ×2 (09:07→22:03)
[2017-06-05] MEDS: ENOXAPARIN 60 MG/0.6 ML SYR SC SCH ×2 (09:08→22:03)
[2017-06-05] MEDS: SENNOSIDES/DOCUSATE SODIUM TAB PO SCH (09:08)
[2017-06-05] MEDS: OXYMETAZOLINE 30 ML NASAL SPRAY EACHNARE SCH (09:09)
--- NOTE | 2017-06-05 10:38 | PDCONSULT ---
Signal Engineer Note: Mr Hackett experienced a superficial wound dehisence in the upper midline portion of his wound after staple removal A wound vac will be applied to facilitate healing. There is no evidence of fascial dehiscence. Annalisa Millan MD, FACS
--- NOTE | 2017-06-05 10:57 | WOCRNPDOC ---
WOCRN Advanced Assessment Note - Skin Integrity Problem, Advanced Assess Abdominal incision Dressing Type: ABD Pad Dressing Description: Clean/Dry, Intact Closure Description: Approximated (3/4), Not Approximated (1/4 midline area) Exudate Amount: Minimal Exudate Characteristic(s): Serosanguinous Integumentary Issue Intervention: Dressing Changed Wound Bed Constitution: Smooth Tissue, Subcutaneous Fat (100%) Site Measurement - Head-to-Toe Length X Width X Depth (cm): 6.5x3.5x1 (dehisced open area at midline) Skin Integrity Problem Comment: Large surgical incision from midline to right flank. Open full thickness wound cleaned with ns and gauze. Skin prep and drape applied josé miguel wound. The incision line was draped on either side, covered with adaptic touch and also covered with black foam to create an incisional vac dressing. The open wound was covered with black medium granufoam dressing with settings at -75 mm Hg continuous suction. Anticipate patient will need wound vac for 3-4 weeks.
--- NOTE | 2017-06-05 13:01 | HOSPPROG ---
Hospitalist Progress Note Assessment/Plan: * Gangrenous cholecystitis s/p open jean carlos * Wound dehiscence -d/w Dr. Millan - wound vac to be placed * Cdiff -PO Vanco -diarrhea improving -refused removal of rectal tube * Super morbid obesity BMI 59 * Cirrhosis of liver due to GARCIA/Etoh -ascites improved with IV albumin + diuretics -drain pulled as output dramatically improved * Obesity hypoventilation syndrome + NADIA -baseline 3L -refuses CPAP * Chronic venous stasis * Sacral pressure ulcer (POA) -bariatric bed -refuses PT/OT or schedule turns by nursing * h/o hepatic encephalopathy -lactulose, rifaximin * Hepatic mass 3.5 cm -AFP normal -outpatient triple phase CT of liver * Chronic portal vein thrombosis * Chronic pain with continuous narcotic dependency Subjective: Nervous about going to BM. Refused rectal tube out. Refused to be turned by nursing. Objective: Vital Signs Temp Pulse Resp BP Pulse Ox 36.6 C 71 18 116/45 L 94 06/05/17 08:33 06/05/17 09:06 06/05/17 08:33 06/05/17 09:06 06/05/17 08:33 Microbiology 05/30/17 17:19 Gram Stain - Final Gallbladder - Eswab Laboratory Results 06/05/17 05:28 06/05/17 05:28 06/04/17 06/05/17 06/06/17 05:59 05:59 05:59 Intake Total 750 1070 Output Total 3110 2105 Balance -2360 -1035 PT 17.9 SEC (12.0-15.0) H 06/03/17 05:15 INR 1.48 (0.83-1.16) H 06/03/17 05:15 - Physical Exam Constitutional: no apparent distress, appears nourished, not in pain Cardiovascular: regular rate and rhythym, no murmur, rub, or gallop Respiratory: no respiratory distress, no rales or rhonchi, clear to auscultation Gastrointestinal: normoactive bowel sounds, soft, non-tender abdomen, no palpable masses Skin: no rashes or abrasions, no fluctuance, no induration, other (igor removed and wound immediately dehisced with large amt subq fat exposed) Neurologic: AAOx3, sensation intact bilaterally Psychiatric: interacting appropriately, not anxious, not encephalopathic, thought process linear ICD10 Worksheet Patient Problems: Problems Problem Status Onset Abdominal pain Acute Atrial fibrillation Acute C. difficile diarrhea Acute ~06/03/17 Cholecystitis, acute with cholelithiasis Acute Chronic pain due to trauma Acute Cirrhosis Acute Morbid obesity Acute Portal vein thrombosis Acute
[2017-06-05] MEDS: LEVOTHYROXINE 75 MCG TAB PO SCH (22:02)
[2017-06-06] MEDS: VANCOMYCIN 125 MG/2.5 ML UDL PO SCH ×4 (05:08→22:57)
[2017-06-06 05:18] LABS: % IMMATURE GRANULYOCYTES 1.1 % (0.0-1.1); ABSOLUTE IMMATURE GRANULOCYTES 0.07 10^3/uL (0.00-0.10); ABSOLUTE NRBC COUNT 0.03 10^3/uL (0-0.01); ADD DIFF? NO; ADD MORPH? NO; ADD SCAN? NO; ATYPICAL LYMPHOCYTE FLAG 60 (0-99); FRAGMENT RBC FLAG 0 (0-99); HEMATOCRIT 31.2 % (40.0-51.0); HEMOGLOBIN 10.5 g/dL (13.7-17.5); LEFT SHIFT FLG 0 (0-99); LIPEMIA HEMOLYSIS FLAG 80 (0-99); MEAN CELL HEMOGLOBIN 33.1 pg (27.9-34.1); MEAN CELL HEMOGLOBIN CONCENTR. 33.7 g/dL (32.4-36.7); MEAN CELL VOLUME 98.4 fL (81.5-99.8); MEAN PLATELET VOLUME 9.2 fL (8.7-11.7); NRBC-AUTO% 0.5 % (0.0-0.2); PLATELET CLUMPS FLAG 0 (0-99); PLATELET COUNT 103 10^3/uL (150-400); RED BLOOD CELL COUNT 3.17 10^6/uL (4.40-6.38)
[2017-06-06 05:43] LABS: ANION GAP 5 mEq/L (8-16); CALCIUM 7.8 mg/dL (8.5-10.4); CARBON DIOXIDE 26 mEq/l (22-31); CHLORIDE 104 mEq/L (97-110); CREATININE 0.8 mg/dL (0.7-1.3); GLOMERULAR FILTRATION RATE > 60; GLUCOSE 77 mg/dL (70-100); POTASSIUM 3.5 mEq/L (3.5-5.2); SODIUM 135 mEq/L (134-144)
[2017-06-06] MEDS: SPIRONOLACTONE 50 MG TAB PO SCH ×2 (10:41→22:57)
[2017-06-06] MEDS: PANTOPRAZOLE SODIUM 40 MG TAB PO SCH (10:42)
[2017-06-06] MEDS: RIFAXIMIN 550 MG TAB PO SCH ×2 (10:42→20:27)
[2017-06-06] MEDS: NADOLOL 20 MG TAB PO SCH (10:42)
[2017-06-06] MEDS: oxyCODONE IR 5 MG TAB PO SCH ×2 (10:43→20:27)
[2017-06-06] MEDS: GABAPENTIN 400 MG CAP PO SCH ×2 (10:43→20:27)
[2017-06-06] MEDS: FUROSEMIDE 40 MG TAB PO SCH (10:43)
[2017-06-06] MEDS: ENOXAPARIN 60 MG/0.6 ML SYR SC SCH ×2 (10:44→20:27)
[2017-06-06] MEDS: LACTULOSE 20 GM/30 ML UDCUP PO SCH ×2 (12:22→20:27)
[2017-06-06] MEDS ORDERED: oxyCODONE IR 5 MG TAB PO PRN (12:37)
--- NOTE | 2017-06-06 14:39 | PDCONSULT ---
Feedmobile Driver Note: Resting comfortably/rectal tube out today. Wound vac intact with minimal output will continue wound vac therapy at SNF when ready to transfer. Annalisa Millan MD, FACS
--- NOTE | 2017-06-06 15:17 | HOSPPROG ---
Hospitalist Progress Note Assessment/Plan: * Gangrenous cholecystitis s/p open jean carlos * Wound dehiscence -wound vac * Cdiff -PO Vanco -diarrhea improving -removal of rectal tube * Super morbid obesity BMI 59 * Cirrhosis of liver due to GARCIA/Etoh -ascites improved with IV albumin + diuretics -drain pulled as output dramatically improved * Obesity hypoventilation syndrome + NADIA -baseline 3L -refuses CPAP * Chronic venous stasis * Sacral pressure ulcer (POA) -bariatric bed -refuses PT/OT or schedule turns by nursing * h/o hepatic encephalopathy -lactulose, rifaximin * Hepatic mass 3.5 cm -AFP normal -outpatient triple phase CT of liver * Chronic portal vein thrombosis * Chronic pain with continuous narcotic dependency Palliative consulted to discuss goal of care as patient refusing any turns by nursing or care to his back side. Refuses PT/OT or any attempt to get OOB. Per palliative discussion he understands very clearly that these choices may hasten his . His goal is to get back to his independent living, but understands that there is a high chance this will never happen. He has a sister who would make decisions if he would be unable, but he is worried that she will request aggressive treatment for him, when this is not what he would want. Subjective: Thinks he is getting encephalopathic and requests his lactulose back. States he can smell the ammonia on his skin. Objective: Vital Signs Temp Pulse Resp BP Pulse Ox 36.5 C 66 18 127/47 H 93 06/06/17 08:00 06/06/17 10:42 06/06/17 08:00 06/06/17 10:42 06/06/17 08:00 Microbiology 05/30/17 17:19 Gram Stain - Final Gallbladder - Eswab Anaerobic Culture - Final Laboratory Results 06/06/17 04:58 06/06/17 04:58 06/05/17 06/06/17 06/07/17 05:59 05:59 05:59 Intake Total 1070 1415 Output Total 2105 1275 Balance -1035 140 PT 17.9 SEC (12.0-15.0) H 06/03/17 05:15 INR 1.48 (0.83-1.16) H 06/03/17 05:15 d/w Dr. Yana marmolejo for discharge from surgical standpoint - Time Spent With Patient Time Spent with Patient: greater than 35 minutes Time Spent with Patient: Greater than 35 minutes spent on this patients care, greater than 50% of time spent counseling, educating, and coordinating care regarding the above mentioned plan. - Physical Exam Constitutional: no apparent distress, appears nourished, not in pain Cardiovascular: regular rate and rhythym, no murmur, rub, or gallop Respiratory: no respiratory distress, no rales or rhonchi, clear to auscultation Gastrointestinal: normoactive bowel sounds, soft, non-tender abdomen, no palpable masses Skin: no rashes or abrasions, no fluctuance, no induration Neurologic: AAOx3, sensation intact bilaterally Psychiatric: interacting appropriately, not anxious, not encephalopathic, thought process linear ICD10 Worksheet Patient Problems: Problems Problem Status Onset Abdominal pain Acute Atrial fibrillation Acute C. difficile diarrhea Acute ~06/03/17 Cholecystitis, acute with cholelithiasis Acute Chronic pain due to trauma Acute Cirrhosis Acute Morbid obesity Acute Portal vein thrombosis Acute
[2017-06-06] MEDS: LEVOTHYROXINE 75 MCG TAB PO SCH (20:28)
[2017-06-07] MEDS: VANCOMYCIN 125 MG/2.5 ML UDL PO SCH ×4 (04:59→20:50)
--- NOTE | 2017-06-07 08:06 | PDCONSULT ---
Heel Sander Rubber Note: Mr. Hackett is awake and alert/no further nausea or emesis He is still having incontinence of liquid stool His wound vac is intact and there is minimal drainage I would recommed wound vac change Fri-Fri-Fri until healed continue supportive care/stable for transfer to [facility] if wound vac capability confirmed. Annalisa Millan MD, FACS
[2017-06-07] MEDS: SPIRONOLACTONE 50 MG TAB PO SCH ×2 (08:47→20:55)
[2017-06-07] MEDS: PANTOPRAZOLE SODIUM 40 MG TAB PO SCH (08:47)
[2017-06-07] MEDS: GABAPENTIN 400 MG CAP PO SCH ×2 (08:47→20:56)
[2017-06-07] MEDS: NADOLOL 20 MG TAB PO SCH (08:47)
[2017-06-07] MEDS: FUROSEMIDE 40 MG TAB PO SCH (08:47)
[2017-06-07] MEDS: RIFAXIMIN 550 MG TAB PO SCH ×2 (08:47→20:48)
[2017-06-07] MEDS: oxyCODONE IR 5 MG TAB PO SCH ×2 (08:48→20:50)
[2017-06-07] MEDS: LACTULOSE 20 GM/30 ML UDCUP PO SCH ×2 (08:48→20:55)
[2017-06-07] MEDS: ENOXAPARIN 60 MG/0.6 ML SYR SC SCH ×2 (08:50→20:47)
--- NOTE | 2017-06-07 15:28 | HOSPPROG ---
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 Refuses PT/OT or any attempt to get OOB. Per palliative discussion he understands very clearly that these choices may hasten his . His goal is to get back to his independent living, but understands that there is a high chance this will never happen. He has a sister who would make decisions if he would be unable, but he is worried that she will request aggressive treatment for him, when this is not what he would want. Dispo - medically stable for SNF. Await confirmation from [facility] that they have wound vac equipment Objective: Vital Signs Temp Pulse Resp BP Pulse Ox 36.6 C 72 16 135/47 H 92 06/07/17 08:00 06/07/17 08:00 06/07/17 08:00 06/07/17 08:00 06/07/17 08:00 Microbiology 05/30/17 17:19 Gram Stain - Final Gallbladder - Eswab Anaerobic Culture - Final Laboratory Results 06/06/17 04:58 06/06/17 04:58 06/06/17 06/07/17 06/08/17 05:59 05:59 05:59 Intake Total 1415 1450 560 Output Total 1275 650 400 Balance 140 800 160 PT 17.9 SEC (12.0-15.0) H 06/03/17 05:15 INR 1.48 (0.83-1.16) H 06/03/17 05:15 ICD10 Worksheet Patient Problems: Problems Problem Status Onset Abdominal pain Acute Atrial fibrillation Acute C. difficile diarrhea Acute ~06/03/17 Cholecystitis, acute with cholelithiasis Acute Chronic pain due to trauma Acute Cirrhosis Acute Morbid obesity Acute Portal vein thrombosis Acute
[2017-06-07] MEDS: LEVOTHYROXINE 75 MCG TAB PO SCH (20:56)
[2017-06-08] MEDS: VANCOMYCIN 125 MG/2.5 ML UDL PO SCH ×4 (05:43→21:09)
[2017-06-08] MEDS: ENOXAPARIN 60 MG/0.6 ML SYR SC SCH ×2 (08:31→21:09)
[2017-06-08] MEDS: LACTULOSE 20 GM/30 ML UDCUP PO SCH ×2 (08:31→21:10)
[2017-06-08] MEDS: NADOLOL 20 MG TAB PO SCH (08:31)
[2017-06-08] MEDS: RIFAXIMIN 550 MG TAB PO SCH ×2 (08:31→21:07)
[2017-06-08] MEDS: PANTOPRAZOLE SODIUM 40 MG TAB PO SCH (08:32)
[2017-06-08] MEDS: oxyCODONE IR 5 MG TAB PO SCH ×2 (08:32→21:08)
[2017-06-08] MEDS: SPIRONOLACTONE 50 MG TAB PO SCH ×2 (08:33→21:08)
[2017-06-08] MEDS: FUROSEMIDE 40 MG TAB PO SCH (08:33)
[2017-06-08] MEDS: GABAPENTIN 400 MG CAP PO SCH ×2 (08:33→21:08)
--- NOTE | 2017-06-08 15:21 | HOSPPROG ---
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 Refuses PT/OT or any attempt to get OOB. Per palliative discussion he understands very clearly that these choices may hasten his . His goal is to get back to his independent living, but understands that there is a high chance this will never happen. He has a sister who would make decisions if he would be unable, but he is worried that she will request aggressive treatment for him, when this is not what he would want. Dispo - medically stable for SNF. Await confirmation from [facility] that they have wound vac equipment Subjective: No change Objective: Vital Signs Temp Pulse Resp BP Pulse Ox 36.8 C 66 16 130/42 H 91 L 06/08/17 08:00 06/08/17 08:00 06/08/17 08:00 06/08/17 08:31 06/08/17 08:00 Laboratory Results 06/06/17 04:58 06/06/17 04:58 06/07/17 06/08/17 06/09/17 05:59 05:59 05:59 Intake Total 1450 1920 Output Total 650 975 380 Balance 800 945 -380 PT 17.9 SEC (12.0-15.0) H 06/03/17 05:15 INR 1.48 (0.83-1.16) H 06/03/17 05:15 - Physical Exam Constitutional: no apparent distress, appears nourished, not in pain Cardiovascular: regular rate and rhythym, no murmur, rub, or gallop, edema ( chronic, legs wrapped) Respiratory: no respiratory distress, no rales or rhonchi, clear to auscultation Gastrointestinal: normoactive bowel sounds, soft, non-tender abdomen, no palpable masses Skin: no rashes or abrasions, no fluctuance, no induration Neurologic: AAOx3, sensation intact bilaterally Psychiatric: interacting appropriately, not anxious, not encephalopathic, thought process linear ICD10 Worksheet Patient Problems: Problems Problem Status Onset Abdominal pain Acute Atrial fibrillation Acute C. difficile diarrhea Acute ~06/03/17 Cholecystitis, acute with cholelithiasis Acute Chronic pain due to trauma Acute Cirrhosis Acute Morbid obesity Acute Portal vein thrombosis Acute
[2017-06-08] MEDS: LEVOTHYROXINE 75 MCG TAB PO SCH (21:08)
[2017-06-09 05:32] LABS: CALCIUM 7.8 mg/dL (8.5-10.4); CARBON DIOXIDE 26 mEq/l (22-31); CHLORIDE 106 mEq/L (97-110); CREATININE 0.6 mg/dL (0.7-1.3); GLOMERULAR FILTRATION RATE > 60; GLUCOSE 78 mg/dL (70-100); SODIUM 136 mEq/L (134-144)
[2017-06-09 05:41] LABS: ANION GAP 4 mEq/L (8-16); POTASSIUM 3.9 mEq/L (3.5-5.2)
[2017-06-09] MEDS: VANCOMYCIN 125 MG/2.5 ML UDL PO SCH ×4 (05:50→20:13)
--- NOTE | 2017-06-09 08:16 | PDCONSULT ---
Milker Machine Note: tolerating regular diet/wound vac intact with minimal drainage I would continue wound vac therapy until wound is healed. anticipate return to [facility] today. Annalisa Millan MD, FACS
--- NOTE | 2017-06-09 09:06 | HOSPPROG ---
Hospitalist Progress Note Assessment/Plan: #Gangrenous cholecystitis: s/p open jean carlos. Complicated by wound dehiscence; wound vac #C diff: PO vanc through 06/17 #Morbid obesity: #Compensated cirrhosis: due to GARCIA/Etoh: cont PO diuretics. Cont lactulose, rifaximin #Chronic hypoxemic resp failure: due to NADIA. BL 3L #NADIA: refuses CPAP #Chronic sacral ulcer: refuses turns #Hepatic mass: triple-phase CT outpatient #Diet: Na-restricted #DVT ppx: lovenox #Disp: DC to NH today Subjective: loose stool this morning Objective: Vital Signs Temp Pulse Resp BP Pulse Ox 36.3 C 63 16 131/48 H 91 L 06/09/17 04:00 06/09/17 04:00 06/09/17 04:00 06/09/17 04:00 06/09/17 04:00 Laboratory Results 06/06/17 04:58 06/09/17 05:00 06/08/17 06/09/17 06/10/17 05:59 05:59 05:59 Intake Total 1920 200 Output Total 975 1030 Balance 945 -830 PT 17.9 SEC (12.0-15.0) H 06/03/17 05:15 INR 1.48 (0.83-1.16) H 06/03/17 05:15 ICD10 Worksheet Patient Problems: Problems Problem Status Onset Abdominal pain Acute Atrial fibrillation Acute C. difficile diarrhea Acute ~06/03/17 Cholecystitis, acute with cholelithiasis Acute Chronic pain due to trauma Acute Cirrhosis Acute Morbid obesity Acute Portal vein thrombosis Acute
[2017-06-09] MEDS: FUROSEMIDE 40 MG TAB PO SCH (09:53)
[2017-06-09] MEDS: GABAPENTIN 400 MG CAP PO SCH ×2 (09:53→20:13)
[2017-06-09] MEDS: RIFAXIMIN 550 MG TAB PO SCH ×2 (09:53→20:12)
[2017-06-09] MEDS: oxyCODONE IR 5 MG TAB PO SCH ×2 (09:54→20:12)
[2017-06-09] MEDS: PANTOPRAZOLE SODIUM 40 MG TAB PO SCH (09:55)
[2017-06-09] MEDS: LACTULOSE 20 GM/30 ML UDCUP PO SCH ×2 (09:55→20:13)
[2017-06-09] MEDS: SPIRONOLACTONE 50 MG TAB PO SCH ×2 (09:55→20:13)
[2017-06-09] MEDS: NADOLOL 20 MG TAB PO SCH (09:55)
[2017-06-09] MEDS: ENOXAPARIN 60 MG/0.6 ML SYR SC SCH ×2 (09:56→20:17)
--- NOTE | 2017-06-09 11:28 | WOCRNPDOC ---
WOCRAnabela Advanced Assessment Note - Skin Integrity Problem, Advanced Assess Abdominal incision Dressing Type: Black Vac Foam (x1), Wound Vac Dressing Description: Clean/Dry, Intact Closure Description: Approximated (inferior, lateral 3/4 portion of wound), Not Approximated (open wound superior to incision) Exudate Amount: Minimal Exudate Characteristic(s): Bloody Integumentary Issue Intervention: Dressing Changed (to superior open wound. Incisional dressing left intact.) Danika Wound Swelling: None Wound Bed Color: Red, Yellow Wound Bed Constitution: Granulation Tissue (90%), Subcutaneous Fat (10%) Wound Edges: Attached Site Odor: None Site Measurement - Head-to-Toe Length X Width X Depth (cm): 6.5x4x1.4 Skin Integrity Problem Comment: Wound bed firm except for a small area around a small area of necrotic fat in the middle where the wound tunnels approx 1 cm deep . This was reported to Dr. Millan. Cleaned wound with NS and gauze. Skin prep applied danika wound and draped. 3 pieces black small simplace foam to wound bed. Reconnected to incisional vac foam dressing. Vac restarted at -75mmHg with no leaks. Stephani ROLLE changed dressing with Nat MORTENSEN. Change open wound vac dressing . February D/C incisional dressing Wednesday 06/13.
--- NOTE | 2017-06-09 11:29 | PDIAF ---
- Diagnosis Diagnosis: cirrhosis, cholecystitis Code Status: Do Not Resuscitate - Medication Management Discharge Medications: Medications to Continue on Transfer Gabapentin [Neurontin 400 MG (*)] 400 mg PO BID 05/28/17 [Last Taken Unknown] Lactulose 20 gm PO BID 05/28/17 [Last Taken 05/27/17] Levothyroxine [Synthroid 75 mcg (*)] 75 mcg PO HS 05/28/17 [Last Taken 05/27/17] Nadolol [Nadolol 20 mg (*)] 20 mg PO DAILY 05/28/17 [Last Taken Unknown] Omeprazole 40 mg PO DAILY 05/28/17 [Last Taken 6 Weeks Ago] Rifaximin [Xifaxan] 550 mg PO BID 05/28/17 [Last Taken Unknown] oxyCODONE IR [Oxycodone Ir (*)] 10 mg PO BID 05/28/17 [Last Taken 05/27/17] Furosemide [Lasix 40 MG (*)] 40 mg PO DAILY tab 06/09/17 [Last Taken Unknown] Pantoprazole Sodium [Protonix 40mg (*)] 40 mg PO DAILY tab 06/09/17 [Last Taken Unknown] Spironolactone [Aldactone] 50 mg PO BID tab 06/09/17 [Last Taken Unknown] Vancomycin [Vancocin Oral Liquid] 125 mg PO QID #0 udl 06/09/17 [Last Taken Unknown] Discharge Medications: Refer to the Discharge Home Medication list for PRN reason. - Orders Services needed: Registered Nurse, Certified Fish Culturist, Master Architecture Manager , Physical Therapy Diet Recommendation: sodium restricted Diet Texture: Regular Texture Diet, Thin Liquids, Meds Whole w/Liquids - Labs/Radiology BMP Date: 06/10/17 - Follow Up Care Current Providers and Referrals: Patient,NotPresent [Unknown] - As per Instructions
[2017-06-09 19:49] VITALS: RESP 16
[2017-06-09] MEDS: LEVOTHYROXINE 75 MCG TAB PO SCH (20:13)
--- NOTE | 2017-06-09 20:33 | GDS ---
[f rep st] DISCHARGE SUMMARY DISCHARGE DIAGNOSES: 1. Gangrenous cholecystitis, status post open cholecystectomy. 2. Wound dehiscence. 3. Clostridium difficile infection. 4. Morbid obesity. 5. Compensated cirrhosis of the liver due to nonalcoholic steatohepatitis/alcohol, obesity, obstruc tive sleep apnea. 6. Chronic hypoxemic respiratory failure on 3 L, refused continuous positive airway pressure. 7. Chronic venous stasis. 8. Sacral pressure ulcer, present on admission, history of hepatic encephalopathy. 9. Hepatic mass 3.5 cm, chronic portal vein thrombosis, chronic pain with chronic narcotic dependen cy. 10. Hypothyroidism. SURGERIES: 05/30/17, open cholecystectomy. HISTORY OF PRESENT ILLNESS: A 61-year-old male with history of morbid obesity, GARCIA/ETOH cirrhosis, presenting with acute abdominal pain in the right upper quadrant. The pain was worse with water an d was associated with some belching and nausea. He reported his last bowel movement had been prior to day of admission. HOSPITAL COURSE BY PROBLEM: 1. Gangrenous cholecystitis: The patient underwent open cholecystectomy 05/30/17 and has improved clinically. 2. This was complicated by wound dehiscence. He had a wound VAC placed, which will be continued at discharge. Tolerating oral intake without issue. 3. Chronic hypoxemic respiratory failure: Stable on 3 L, which is his baseline. He has a history of NADIA, refuses CPAP. 4. NADIA, again, refusing CPAP. 5. Lymphedema with lichenification of lower extremities and chronic venous ulcers. Continue wound care. 6. Sacral pressure injury: Present on admission. Has a bariatric mattress. He refuses PT/OT. 7. Compensated cirrhosis secondary to alcohol/GARCIA. Improved with spironolactone and Lasix. Temitope nue these. We will continue rifaximin, nadolol, and lactulose. Continue lactulose with a goal of 2 to 3 BMs a day. May have to hold doses with acute C. diff infection, but patient does become encep halopathic easily, per his report. 8. Acute C. difficile infection: Continue vancomycin through 06/17/2017. 9. Hepatic mass: At 3.5 cm. Normal AFP. Would benefit from a triple-phase CT as an outpatient. 10. Morbid obesity: This can hinder some of his care as he has refused turns with staff here. Pat ient understands these risks. 11. Diet 2 g sodium. Fluid restriction. 12. History of atrial fibrillation; normal sinus rhythm now. 13. Coagulopathy secondary to cirrhosis status post vitamin K. Peripheral neuropathy, gabapentin. 14. Hypothyroidism. Synthroid. 15. Chronic opioid use. Continue home medications. DISPOSITION: Patient is stable for discharge to nursing facility. Will continue wound VAC. FOLLOWUP: 1. Outpatient CT triple phase to evaluate hepatic mass. 2. Wound care. 3. BMP 06/10/17. Given diuretics. MEDICATIONS: See medication reconciliation. /[id number]/MODL
[2017-06-10] MEDS: VANCOMYCIN 125 MG/2.5 ML UDL PO SCH ×2 (05:36→12:14)
[2017-06-10] MEDS: SPIRONOLACTONE 50 MG TAB PO SCH (08:50)
[2017-06-10] MEDS: RIFAXIMIN 550 MG TAB PO SCH (08:50)
[2017-06-10] MEDS: NADOLOL 20 MG TAB PO SCH (08:50)
[2017-06-10] MEDS: PANTOPRAZOLE SODIUM 40 MG TAB PO SCH (08:50)
[2017-06-10] MEDS: GABAPENTIN 400 MG CAP PO SCH (08:50)
[2017-06-10] MEDS: FUROSEMIDE 40 MG TAB PO SCH (08:51)
[2017-06-10] MEDS: oxyCODONE IR 5 MG TAB PO SCH (08:51)
[2017-06-10] MEDS: ENOXAPARIN 60 MG/0.6 ML SYR SC SCH (08:52)
[2017-06-10 08:55] VITALS: BP 130/49; PULSE 61; TEMP 97.6; O2SAT 90
[2017-06-10] MEDS: LACTULOSE 20 GM/30 ML UDCUP PO SCH (08:59)
--- NOTE | 2017-06-10 10:15 | HOSPPROG ---
Hospitalist Progress Note Assessment/Plan: #Gangrenous cholecystitis: s/p open jean carlos. Complicated by wound dehiscence; wound vac #C diff: PO vanc through 06/17 #Morbid obesity: #Compensated cirrhosis: due to GARCIA/Etoh: cont PO diuretics. Cont lactulose, rifaximin #Chronic hypoxemic resp failure: due to NADIA. BL 3L #NADIA: refuses CPAP #Chronic sacral ulcer: refuses turns #Hepatic mass: triple-phase CT outpatient #Diet: Na-restricted #DVT ppx: lovenox #Disp: DC to NH today Subjective: no acute events overnight Objective: Vital Signs Temp Pulse Resp BP Pulse Ox 36.4 C 61 16 130/49 H 90 L 06/10/17 08:55 06/10/17 08:55 06/10/17 08:55 06/10/17 08:55 06/10/17 08:55 Laboratory Results 06/06/17 04:58 06/09/17 05:00 06/09/17 06/10/17 06/11/17 05:59 05:59 05:59 Intake Total 200 1350 Output Total 1030 1825 800 Balance -830 -475 -800 PT 17.9 SEC (12.0-15.0) H 06/03/17 05:15 INR 1.48 (0.83-1.16) H 06/03/17 05:15 - Physical Exam Constitutional: obese Eyes: PERRL Ears, Nose, Mouth, Throat: moist mucous membranes, hearing normal Cardiovascular: regular rate and rhythym (distant) Respiratory: no respiratory distress Gastrointestinal: normoactive bowel sounds, other (wound vac in place with no surrounding redness) Genitourinary: no bladder fullness Skin: warm Musculoskeletal: full muscle strength, other (both legs dressed, CDI) Neurologic: AAOx3, CN II-XII Intact Psychiatric: interacting appropriately ICD10 Worksheet Patient Problems: Problems Problem Status Onset Abdominal pain Acute Atrial fibrillation Acute C. difficile diarrhea Acute ~06/03/17 Cholecystitis, acute with cholelithiasis Acute Chronic pain due to trauma Acute Cirrhosis Acute Morbid obesity Acute Portal vein thrombosis Acute
--- NOTE | 2017-06-10 10:15 | PDIAF ---
- Diagnosis Diagnosis: cirrhosis, cholecystitis Code Status: Do Not Resuscitate - Medication Management Discharge Medications: Medications to Continue on Transfer Gabapentin [Neurontin 400 MG (*)] 400 mg PO BID 05/28/17 [Last Taken Unknown] Lactulose 20 gm PO BID 05/28/17 [Last Taken 05/27/17] Levothyroxine [Synthroid 75 mcg (*)] 75 mcg PO HS 05/28/17 [Last Taken 05/27/17] Nadolol [Nadolol 20 mg (*)] 20 mg PO DAILY 05/28/17 [Last Taken Unknown] Omeprazole 40 mg PO DAILY 05/28/17 [Last Taken 6 Weeks Ago] Rifaximin [Xifaxan] 550 mg PO BID 05/28/17 [Last Taken Unknown] oxyCODONE IR [Oxycodone Ir (*)] 10 mg PO BID 05/28/17 [Last Taken 05/27/17] Furosemide [Lasix 40 MG (*)] 40 mg PO DAILY tab 06/09/17 [Last Taken Unknown] Pantoprazole Sodium [Protonix 40mg (*)] 40 mg PO DAILY tab 06/09/17 [Last Taken Unknown] Spironolactone [Aldactone] 50 mg PO BID tab 06/09/17 [Last Taken Unknown] Vancomycin [Vancomycin (*)] 125 mg PO Q6 #30 cap 06/09/17 [Last Taken Unknown] Discharge Medications: Refer to the Discharge Home Medication list for PRN reason. - Orders Services needed: Registered Nurse, Certified Gastroenterology Teacher, Master Aquatic Biologist , Physical Therapy Diet Recommendation: sodium restricted Diet Texture: Regular Texture Diet, Thin Liquids, Meds Whole w/Liquids - Labs/Radiology BMP Date: 06/11/17 - Follow Up Care Current Providers and Referrals: Patient,NotPresent [Unknown] - As per Instructions
--- NOTE | 2017-06-10 13:37 | GDS ---
[f rep st] DISCHARGE SUMMARY Please see initial discharge summary dated 06/09/2017 for full details, as the [facility] only because [facility] did not have wound care VAC equipment. There were no changes overnight and the plan remains the same. /[id number]/MODL
--- NOTE | 2017-06-10 14:23 | ASMTCMCOM ---
CM Note CM Note Notes: Pt discharged to [facility]. All required paperwork faxed to [facility] in admisssions. Pt to dischar ge by [facility] ambulance bariatric transport stretcher. Family notified. No additional Case management needs apparent at this time. Date Signed: 06/10/2017 02:12 PM Electronically Signed By:Graciela Costa
[2017-06-10] MEDS ORDERED: oxyCODONE IR 5 MG TAB PO SCH (21:00)
== END 2017-06-10 15:33 | DRG 414 ==
LOC: F1N 16:41 → OBSVTOIN 05-29 09:29
PROVIDERS: ADMIT Internal Medicine; ATTEND Internal Medicine
PROC: 0FT40ZZ Resection of Gallbladder, Open Approach (ICD-10-PCS; principal; 2017-05-30 15:15)
CPT/HCPCS: 92610-GN; 96374; A9537; G0378; G8996-GN-CH; G8997-GN-CH; G8998-GN-CH; J0330; J1170; J1650; J1956; J2405; J2704; J3010; P9041; P9047; Q9961; Q9967

== ENCOUNTER 2017-12-09 20:21 | Emergency (ER) | payer OTHER, MEDICAID ==
--- NOTE | 2017-12-09 21:11 | EDPHY ---
H & P Time Seen by Provider: 12/09/17 20:57 HPI/ROS: CHIEF COMPLAINT: Fever, lethargy Limitations: challenging historian HISTORY OF PRESENT ILLNESS: The patient is a 61 y/o male arriving from [facility] for fever and lethargy. Recent history of complicated wound infections of BLE. He was transferred to [facility] from a rehabilitation hospital this afternoon for ongoing wound care. They report a low grade fever and lethargy this evening and transferred him to the ED. EMS removed a fentanyl patch. He reports the fentanyl patch is new in the past three days. He is on chronic narcotics. He tells me that he feels fine, just a little sleepy. No cough, URI sx, or chills. He denies pain or any other complaints. REVIEW OF SYSTEMS: A 10 point review of systems was performed and is negative with the exception of the elements mentioned in the history of present illness. Past Medical/Surgical History: Cirrhosis, gallstones, obesity, atrial fibrillation, portal hypertension Social History: Lives at [facility], disabled, former smoker Smoking Status: Former smoker Physical Exam: General Appearance: Drowsy initially but upon waking he is alert and answers questions appropriately Eyes: Pupils equal and round, no conjunctival pallor or injection ENT, Mouth: Mucous membranes moist Neck: Normal inspection Respiratory: Lungs are clear to auscultation Cardiovascular: Regular rate and rhythm Gastrointestinal: Abdomen is soft and non-tender Neurological: drowsy, nonfocal exam Skin: Warm and dry Extremities: Nontender, dressings to above the knee bilaterally Psychiatric: flat affect Constitutional: Initial Vital Signs Temperature (C) 37.0 C 12/09/17 20:30 Heart Rate 83 12/09/17 20:30 Respiratory Rate 16 12/09/17 20:30 Blood Pressure 125/60 H 12/09/17 20:30 O2 Sat (%) 93 12/09/17 20:30 O2 Delivery Mode Room Air Allergies/Adverse Reactions: strawberry Allergy (Verified 12/09/17 22:46) Home Medications: Medication Instructions Recorded Gabapentin [Neurontin 400 MG (*)] 400 mg PO BID 05/28/17 Lactulose 20 gm PO BID 05/28/17 Levothyroxine [Synthroid 75 mcg 75 mcg PO HS 05/28/17 (*)] Nadolol [Nadolol 20 mg (*)] 20 mg PO DAILY 05/28/17 Omeprazole 40 mg PO DAILY 05/28/17 Rifaximin [Xifaxan] 550 mg PO BID 05/28/17 oxyCODONE IR [Oxycodone Ir (*)] 10 mg PO BID 05/28/17 Furosemide [Lasix 40 MG (*)] 40 mg PO DAILY tab 06/09/17 Pantoprazole Sodium [Protonix 40mg 40 mg PO DAILY tab 06/09/17 (*)] Spironolactone [Aldactone] 50 mg PO BID tab 06/09/17 Vancomycin [Vancomycin (*)] 125 mg PO Q6 #30 cap 06/09/17 Medical Decision Making - Diagnostics Imaging Results: CXR: no infiltrate ED Course/Re-evaluation: The patient presents from [facility] for a low grade fever and lethargy. He was transferred today from a rehabilitation hospital for ongoing wound care. EMS removed a fentanyl patch. It is unclear if the patch is new. In the ED he is afebrile and appropriately conversant when awake. Oxygen saturation dips into the 80's when he is off oxygen. He is not ill-appearing. 2137: The ED RN called [facility]. The pt is not usually on oxygen and the fentanyl patch is not a new prescription. Since he has a status change he will need further evaluation. I will remove his bandages to examine his legs to determine if his wounds have become infected. X-ray discussed with Dr. Ferguson-no infiltrate, but will need follow-up in 4 weeks with repeat chest x-ray. Dressings from bilateral lower extremities and buttocks removed. There are multiple well-healing wounds, with no evidence of infection. No evidence of UTI on urinalysis. He is more alert now and maintaining an adequate oxygen saturation. I think that he can safely be transferred back to [facility]. There is no evidence for infection, or other serious etiology of sx. No fever while in the ED. Sx likely secondary to overmedication with sedative medications. Differential Diagnosis: infectious etiology such as pneumonia or UTI; hypoglycemia and hyponatremia; medication overdose, hepatic encephalopathy, CVA - Data Points Laboratory Results: Laboratory Results 12/09/17 20:35 12/09/17 20:35 Departure - Departure Disposition: Home, Routine, Self-Care Clinical Impression: Fatigue Qualifiers: Fatigue type: unspecified Qualified Code(s): R53.83 - Other fatigue Condition: Good Instructions: Fatigue (ED) Additional Instructions: 1. You need a followup chest Xray in 4 weeks. 2. I suspect the fentanyl patch is making you sleepy. Please do not use the fentanyl patch. 3. Return to the emergency department for any worsening of condition. Referrals: Chris Schwartz, [Doctor of Osteopathy] - As per Instructions Report Scribed for: Laina Sexton Report Scribed by: Charlene Tapia Date of Report: 12/09/17 Time of Report: 20:58 Physician Review and Approval Statement: 12/09/17 20:58 Portions of this note were transcribed by a senior medical technologist. I personally performed a history, physical exam, medical decision making, and confirmed accuracy of information the transcribed note.
[2017-12-09 21:25] LABS: PLATELET COUNT 146 10^3/uL (150-400)
[2017-12-09 22:49] VITALS: RESP 16
[2017-12-10 00:37] VITALS: BP 115/59; PULSE 75; TEMP 98.2; O2SAT 93
== END 2017-12-10 00:15 | disposition home or self-care (01) ==
LOC: EDUNIT#
DX: R53.83 Other fatigue (principal); Z87.891 Personal history of nicotine dependence